=== PATIENT | male | born 1945 | race Caucasian/White ===

== ENCOUNTER 2018-12-06 09:43 | Inpatient (IN) ==
[2018-12-06] MEDS ORDERED: FUROSEMIDE 100 MG/10 ML VIAL IV STA (10:12)
[2018-12-06] MEDS ORDERED: ASPIRIN 325 MG TABLET PO STA (10:12)
[2018-12-06] MEDS ORDERED: FUROSEMIDE 40 MG/4 ML VIAL ONE (10:49)
[2018-12-06 11:05] LABS: Basophils % 0.8 % (0.0-0.8); Eosinophils # 0.1 10*3/uL (0.0-0.87); Eosinophils % 2.2 % (0.00-10.9); Hematocrit 45.1 VOL% (42.0-52.0); Hemoglobin 14.9 GM/DL (14.0-18.0); Immature Granulocytes % 0.6 %; Immature Granulocytes Absolute 0.03 #; Lymphocytes # 1.1 10*3/uL (1.4-4.0); Lymphocytes % 21.7 % (21.2-54.2); Mean Corpuscular Hemoglobin 32 PG (27-34); Mean Platelet Volume 10.9 FL (9.6-12.0); Monocytes # 0.5 10*3/uL (0.11-0.8); Monocytes % 9.5 % (1.7-12.7); Neutrophils # 3.2 10*3/uL (1.4-7.4); Neutrophils % 65.2 % (38.7-73.9); Platelet Count 102 T/CUMM (130-400); Red Cell Distribution Width 14.2 % (9.3-17.3)
[2018-12-06 11:08] LABS: INR 1.4; PT Patient Result 14.9 SECS; Partial Thromboplastin Time 30.8 SECS (0-40)
[2018-12-06 11:16] LABS: Albumin 3.5 G/DL (3.4-5.0); Bilirubin,Total 0.7 MG/DL (0.2-1.0); Calcium 9.2 MG/DL (8.5-10.1); Osmolality,Calculated 285.4 MOS/KG (273-304); Total Protein 6.5 G/DL (6.4-8.3)
[2018-12-06 11:44] LABS: Apearance,Urine Slightly Hazy (Clear); Bilirubin,Urine Negative (Negative); Blood, Urine Negative (Negative); Glucose,Urine (UA) Negative (Negative); Hyaline Casts,Urine 3 /LPF (0-3); Ketones,Urine Negative (Negative); Mucus,Urine Occasional /LPF (Occasional); Nitrite,Urine Negative (Negative); Protein,Urine Negative; RBC,Urine 1 /HPF (0-4); Urine Color Yellow (Yellow); Urine Specific Gravity 1.008 (1.001-1.035); Urine Urobilinogen < 2.0 EU/DL (0.2-1.0); WBC,Urine <1 /HPF (0-6)
[2018-12-06] MEDS ORDERED: PROMETHAZINE 25 MG/1 ML VIAL IM PRN (11:54)
[2018-12-06] MEDS ORDERED: ONDANSETRON 4 MG/2 ML VIAL IV PRN (11:54)
[2018-12-06] MEDS ORDERED: POTASSIUM CHLORIDE 20 MEQ TABLET PO PRN (11:57)
[2018-12-06] MEDS ORDERED: POTASSIUM CHLORIDE RIDER 10 MEQ in PREMIX 1 EACH IV PRN (11:57)
[2018-12-06] MEDS ORDERED: MAGNESIUM SULF RIDER 4 GM in PREMIX 1 EACH IV PRN (11:57)
[2018-12-06] MEDS ORDERED: MAGNESIUM SULF RIDER 2 GM in PREMIX 1 EACH IV PRN (11:57)
[2018-12-06] MEDS: PANTOPRAZOLE 40 MG TABLET PO SCH (12:44)
[2018-12-06] MEDS ORDERED: ALBUTEROL 2.5 MG/3 ML NEB RESP TX PRN (14:54)
[2018-12-06] MEDS: rOPINIRole 1 MG TABLET PO SCH ×2 (16:08→20:32)
[2018-12-06] MEDS: DIGOXIN 0.125 MG TABLET PO SCH (16:09)
[2018-12-06] MEDS: GABAPENTIN 100 MG CAPSULE PO SCH ×2 (16:10→20:34)
[2018-12-06] MEDS: CARVEDILOL 25 MG TABLET PO SCH (16:10)
[2018-12-06] MEDS: ACETAMINOPHEN 325 MG TABLET PO PRN ×2 (16:10→20:36)
[2018-12-06] MEDS: FUROSEMIDE 40 MG/4 ML VIAL IV SCH (16:12)
[2018-12-06] MEDS: APIXABAN 5 MG TABLET PO SCH (20:32)
[2018-12-06] MEDS: MAGNESIUM OXIDE 400 MG TABLET PO SCH (20:32)
[2018-12-06] MEDS: SACUBITRIL/VALSARTAN 49-51 MG TABLET PO SCH (20:33)
[2018-12-06] MEDS: DONEPEZIL 5 MG TABLET PO SCH (20:33)
[2018-12-06] MEDS: ROSUVASTATIN 20 MG TABLET PO SCH (20:34)
[2018-12-06] MEDS ORDERED: Icosapent Ethyl [Vascepa] 2 GM PO SCH (21:00)
[2018-12-07 05:27] LABS: Basophils % 0.9 % (0.0-0.8); Eosinophils # 0.1 10*3/uL (0.0-0.87); Eosinophils % 2.9 % (0.00-10.9); Hematocrit 44.2 VOL% (42.0-52.0); Hemoglobin 14.5 GM/DL (14.0-18.0); Immature Granulocytes % 0.2 %; Immature Granulocytes Absolute 0.01 #; Lymphocytes # 1.1 10*3/uL (1.4-4.0); Lymphocytes % 24.6 % (21.2-54.2); Mean Corpuscular HGB Conc 32.8 GM/DL (32-36); Mean Corpuscular Hemoglobin 32 PG (27-34); Mean Corpuscular Volume 96.3 FL (87-102); Mean Platelet Volume 12.1 FL (9.6-12.0); Monocytes # 0.5 10*3/uL (0.11-0.8); Monocytes % 11.9 % (1.7-12.7); Neutrophils # 2.7 10*3/uL (1.4-7.4); Neutrophils % 59.5 % (38.7-73.9); Platelet Count 106 T/CUMM (130-400); Red Blood Count 4.59 MC/CUMM (3.8-5.5); Red Cell Distribution Width 14.3 % (9.3-17.3); White Blood Count 4.6 T/CUMM (4-12)
[2018-12-07 05:41] LABS: Calcium 9.2 MG/DL (8.5-10.1); Osmolality,Calculated 285.7 MOS/KG (273-304); Potassium 4.3 MMOL/L (3.5-5.1); Risk Ratio 4.67; VLDL CHOLESTEROL 36.4 MG/DL
[2018-12-07] MEDS ORDERED: metOLazone 2.5 MG TABLET PO SCH (07:30)
[2018-12-07] MEDS ORDERED: ERGOCALCIFEROL 50,000 UNIT CAPSULE PO SCH (09:00)
[2018-12-07] MEDS ORDERED: FUROSEMIDE 40 MG/4 ML VIAL IV ONE (09:22)
[2018-12-07] MEDS ORDERED: metOLazone 2.5 MG TABLET PO ONE (10:42)
[2018-12-07] MEDS: MONTELUKAST 10 MG TABLET PO SCH (11:04)
[2018-12-07] MEDS: rOPINIRole 1 MG TABLET PO SCH ×3 (11:05→20:16)
[2018-12-07] MEDS: APIXABAN 5 MG TABLET PO SCH ×2 (11:05→20:16)
[2018-12-07] MEDS: PANTOPRAZOLE 40 MG TABLET PO SCH (11:05)
[2018-12-07] MEDS: GABAPENTIN 100 MG CAPSULE PO SCH ×3 (11:06→20:16)
[2018-12-07] MEDS: MULTIVITAMIN (CENTRUM) TABLET PO SCH (11:06)
[2018-12-07] MEDS: SACUBITRIL/VALSARTAN 49-51 MG TABLET PO SCH ×2 (11:06→20:16)
[2018-12-07] MEDS: MAGNESIUM OXIDE 400 MG TABLET PO SCH ×2 (11:06→20:16)
[2018-12-07] MEDS: ASCORBIC ACID 500 MG TABLET PO SCH (11:06)
[2018-12-07] MEDS: MULTIVITAMIN (BEROCCA) TABLET PO SCH (11:07)
[2018-12-07] MEDS: FUROSEMIDE 40 MG/4 ML VIAL IV SCH ×2 (11:07→17:35)
[2018-12-07] MEDS: FENOFIBRATE 160 MG TABLET PO SCH (11:07)
[2018-12-07] MEDS: CARVEDILOL 25 MG TABLET PO SCH ×2 (11:33→17:36)
[2018-12-07] MEDS ORDERED: GLUCAGON 1 MG VIAL IM PRN (16:59)
[2018-12-07] MEDS ORDERED: DEXTROSE 50% 25 GM/50 ML SYRINGE IV PRN (16:59)
[2018-12-07] MEDS ORDERED: FUROSEMIDE 20 MG/2 ML VIAL ONE (17:09)
[2018-12-07] MEDS: sitaGLIPtin 25 MG TABLET PO SCH (17:34)
[2018-12-07] MEDS: INSULIN GLARGINE 100 UNIT/ML SUBCUT SCH (17:34)
[2018-12-07] MEDS: DIGOXIN 0.125 MG TABLET PO SCH (17:35)
[2018-12-07] MEDS: ROSUVASTATIN 20 MG TABLET PO SCH (20:16)
[2018-12-07] MEDS: DONEPEZIL 5 MG TABLET PO SCH (20:17)
[2018-12-07] MEDS: INSULIN REGULAR 100 UNIT/ML SUBCUT SCH (23:49)
[2018-12-08 05:18] LABS: Basophils # 0.1 10*3/uL (0.0-0.2); Basophils % 0.9 % (0.0-0.8); Eosinophils # 0.2 10*3/uL (0.0-0.87); Eosinophils % 3.3 % (0.00-10.9); Hematocrit 47.3 VOL% (42.0-52.0); Hemoglobin 15.2 GM/DL (14.0-18.0); Immature Granulocytes % 0.5 %; Immature Granulocytes Absolute 0.03 #; Lymphocytes # 1.1 10*3/uL (1.4-4.0); Lymphocytes % 19.9 % (21.2-54.2); Mean Corpuscular HGB Conc 32.1 GM/DL (32-36); Mean Corpuscular Hemoglobin 31 PG (27-34); Mean Corpuscular Volume 95.4 FL (87-102); Mean Platelet Volume 11.5 FL (9.6-12.0); Monocytes # 0.6 10*3/uL (0.11-0.8); Monocytes % 10.1 % (1.7-12.7); Neutrophils # 3.6 10*3/uL (1.4-7.4); Neutrophils % 65.3 % (38.7-73.9); Platelet Count 118 T/CUMM (130-400); Red Blood Count 4.96 MC/CUMM (3.8-5.5); Red Cell Distribution Width 13.8 % (9.3-17.3); White Blood Count 5.5 T/CUMM (4-12)
[2018-12-08 05:39] LABS: Calcium 9.6 MG/DL (8.5-10.1); Osmolality,Calculated 284.5 MOS/KG (273-304); Potassium 3.9 MMOL/L (3.5-5.1)
[2018-12-08] MEDS: INSULIN REGULAR 100 UNIT/ML SUBCUT SCH ×3 (05:49→17:10)
[2018-12-08] MEDS: APIXABAN 5 MG TABLET PO SCH ×2 (10:04→20:25)
[2018-12-08] MEDS: MULTIVITAMIN (BEROCCA) TABLET PO SCH (10:04)
[2018-12-08] MEDS: sitaGLIPtin 25 MG TABLET PO SCH (10:05)
[2018-12-08] MEDS: metOLazone 2.5 MG TABLET PO SCH (10:05)
[2018-12-08] MEDS: ASCORBIC ACID 500 MG TABLET PO SCH (10:05)
[2018-12-08] MEDS: SACUBITRIL/VALSARTAN 49-51 MG TABLET PO SCH ×2 (10:05→20:24)
[2018-12-08] MEDS: PANTOPRAZOLE 40 MG TABLET PO SCH (10:06)
[2018-12-08] MEDS: CARVEDILOL 25 MG TABLET PO SCH ×2 (10:06→16:18)
[2018-12-08] MEDS: GABAPENTIN 100 MG CAPSULE PO SCH ×3 (10:06→20:24)
[2018-12-08] MEDS: FENOFIBRATE 160 MG TABLET PO SCH (10:06)
[2018-12-08] MEDS: MULTIVITAMIN (CENTRUM) TABLET PO SCH (10:06)
[2018-12-08] MEDS: MONTELUKAST 10 MG TABLET PO SCH (10:06)
[2018-12-08] MEDS: MAGNESIUM OXIDE 400 MG TABLET PO SCH ×2 (10:06→20:24)
[2018-12-08] MEDS: INSULIN GLARGINE 100 UNIT/ML SUBCUT SCH (10:07)
[2018-12-08] MEDS: FUROSEMIDE 40 MG/4 ML VIAL IV SCH ×2 (10:07→16:19)
[2018-12-08] MEDS ORDERED: INSULIN GLARGINE 100 UNIT/ML SUBCUT SCH (10:42)
[2018-12-08] MEDS: ACETAMINOPHEN 325 MG TABLET PO PRN (13:00)
[2018-12-08] MEDS: rOPINIRole 1 MG TABLET PO SCH ×3 (13:00→20:24)
[2018-12-08] MEDS ORDERED: SPIRONOLACTONE 25 MG TABLET PO SCH (15:00)
[2018-12-08] MEDS: INSULIN LISPRO 100 UNIT/ML SUBCUT SCH ×2 (16:13→17:10)
[2018-12-08] MEDS: DIGOXIN 0.125 MG TABLET PO SCH (16:16)
[2018-12-08] MEDS: DONEPEZIL 5 MG TABLET PO SCH (20:24)
[2018-12-08] MEDS: ROSUVASTATIN 20 MG TABLET PO SCH (20:24)
[2018-12-09] MEDS: INSULIN REGULAR 100 UNIT/ML SUBCUT SCH ×4 (02:13→19:14)
[2018-12-09 05:05] LABS: Calcium 9.4 MG/DL (8.5-10.1); Osmolality,Calculated 287.4 MOS/KG (273-304); Potassium 3.8 MMOL/L (3.5-5.1)
[2018-12-09] MEDS: FUROSEMIDE 40 MG/4 ML VIAL IV SCH ×2 (09:41→17:01)
[2018-12-09] MEDS: INSULIN GLARGINE 100 UNIT/ML SUBCUT SCH (09:42)
[2018-12-09] MEDS: SACUBITRIL/VALSARTAN 49-51 MG TABLET PO SCH ×2 (09:42→22:27)
[2018-12-09] MEDS: INSULIN LISPRO 100 UNIT/ML SUBCUT SCH ×3 (09:42→17:01)
[2018-12-09] MEDS: PANTOPRAZOLE 40 MG TABLET PO SCH (09:42)
[2018-12-09] MEDS: MONTELUKAST 10 MG TABLET PO SCH (09:43)
[2018-12-09] MEDS: sitaGLIPtin 25 MG TABLET PO SCH (09:43)
[2018-12-09] MEDS: MULTIVITAMIN (CENTRUM) TABLET PO SCH (09:43)
[2018-12-09] MEDS: MULTIVITAMIN (BEROCCA) TABLET PO SCH (09:43)
[2018-12-09] MEDS: metOLazone 2.5 MG TABLET PO SCH (09:43)
[2018-12-09] MEDS: rOPINIRole 1 MG TABLET PO SCH ×3 (09:43→21:32)
[2018-12-09] MEDS: APIXABAN 5 MG TABLET PO SCH ×2 (09:43→21:33)
[2018-12-09] MEDS: CARVEDILOL 25 MG TABLET PO SCH ×2 (09:43→17:01)
[2018-12-09] MEDS: GABAPENTIN 100 MG CAPSULE PO SCH ×3 (09:43→21:32)
[2018-12-09] MEDS: ASCORBIC ACID 500 MG TABLET PO SCH (09:44)
[2018-12-09] MEDS: MAGNESIUM OXIDE 400 MG TABLET PO SCH ×2 (09:44→21:32)
[2018-12-09] MEDS: FENOFIBRATE 160 MG TABLET PO SCH (09:44)
[2018-12-09] MEDS: DIGOXIN 0.125 MG TABLET PO SCH (13:24)
[2018-12-09] MEDS: SPIRONOLACTONE 25 MG TABLET PO SCH (13:25)
[2018-12-09] MEDS: ROSUVASTATIN 20 MG TABLET PO SCH (21:32)
[2018-12-09] MEDS: DONEPEZIL 5 MG TABLET PO SCH (21:33)
[2018-12-10] MEDS: INSULIN REGULAR 100 UNIT/ML SUBCUT SCH ×2 (01:24→07:40)
[2018-12-10] MEDS: ACETAMINOPHEN 325 MG TABLET PO PRN ×2 (04:00→09:53)
[2018-12-10 06:03] LABS: Basophils % 0.8 % (0.0-0.8); Eosinophils # 0.2 10*3/uL (0.0-0.87); Eosinophils % 3.8 % (0.00-10.9); Hematocrit 47.4 VOL% (42.0-52.0); Hemoglobin 15.5 GM/DL (14.0-18.0); Immature Granulocytes % 0.6 %; Immature Granulocytes Absolute 0.03 #; Lymphocytes # 1.3 10*3/uL (1.4-4.0); Lymphocytes % 24.3 % (21.2-54.2); Mean Corpuscular HGB Conc 32.7 GM/DL (32-36); Mean Corpuscular Hemoglobin 31 PG (27-34); Mean Corpuscular Volume 94.2 FL (87-102); Mean Platelet Volume 11.8 FL (9.6-12.0); Monocytes # 0.6 10*3/uL (0.11-0.8); Monocytes % 10.4 % (1.7-12.7); Neutrophils # 3.2 10*3/uL (1.4-7.4); Neutrophils % 60.1 % (38.7-73.9); Platelet Count 115 T/CUMM (130-400); Red Blood Count 5.03 MC/CUMM (3.8-5.5); Red Cell Distribution Width 13.7 % (9.3-17.3); White Blood Count 5.3 T/CUMM (4-12)
[2018-12-10 06:17] LABS: Calcium 9.9 MG/DL (8.5-10.1); Osmolality,Calculated 280.8 MOS/KG (273-304); Potassium 3.5 MMOL/L (3.5-5.1)
[2018-12-10 08:08] VITALS: BP 115/55
[2018-12-10] MEDS ORDERED: FUROSEMIDE 20 MG/2 ML VIAL ONE (09:43)
[2018-12-10] MEDS ORDERED: FUROSEMIDE 100 MG/10 ML VIAL ONE (09:44)
[2018-12-10] MEDS: CARVEDILOL 25 MG TABLET PO SCH (09:47)
[2018-12-10] MEDS: FUROSEMIDE 40 MG/4 ML VIAL IV SCH (09:47)
[2018-12-10] MEDS: MULTIVITAMIN (BEROCCA) TABLET PO SCH (09:47)
[2018-12-10] MEDS: ASCORBIC ACID 500 MG TABLET PO SCH (09:47)
[2018-12-10] MEDS: rOPINIRole 1 MG TABLET PO SCH (09:48)
[2018-12-10] MEDS: APIXABAN 5 MG TABLET PO SCH (09:48)
[2018-12-10] MEDS: PANTOPRAZOLE 40 MG TABLET PO SCH (09:48)
[2018-12-10] MEDS: metOLazone 2.5 MG TABLET PO SCH (09:48)
[2018-12-10] MEDS: SPIRONOLACTONE 25 MG TABLET PO SCH (09:48)
[2018-12-10] MEDS: SACUBITRIL/VALSARTAN 49-51 MG TABLET PO SCH (09:48)
[2018-12-10] MEDS: MULTIVITAMIN (CENTRUM) TABLET PO SCH (09:48)
[2018-12-10] MEDS: sitaGLIPtin 25 MG TABLET PO SCH (09:48)
[2018-12-10] MEDS: GABAPENTIN 100 MG CAPSULE PO SCH (09:48)
[2018-12-10] MEDS: MONTELUKAST 10 MG TABLET PO SCH (09:48)
[2018-12-10] MEDS: INSULIN GLARGINE 100 UNIT/ML SUBCUT SCH (09:49)
[2018-12-10] MEDS: INSULIN LISPRO 100 UNIT/ML SUBCUT SCH (09:49)
[2018-12-10] MEDS: MAGNESIUM OXIDE 400 MG TABLET PO SCH (09:56)
[2018-12-10] MEDS: FENOFIBRATE 160 MG TABLET PO SCH (09:56)
[2018-12-10] MEDS ORDERED: OMEGA 3 ACID ETHYL ESTERS 1 GM CAPSULE PO SCH (10:00)
[2018-12-10] MEDS ORDERED: FUROSEMIDE 40 MG TABLET PO SCH (16:00)
== END 2018-12-10 12:15 | disposition home or self-care (01) | DRG 291 ==
LOC: N.ED 09:43 → N.EDINP 11:54 → SUATTDRO 11:54 → N.4E 14:26
PROVIDERS: ADMIT Family Medicine; ATTEND Emergency Medicine

== ENCOUNTER 2019-03-30 05:33 | Inpatient (IN) ==
[2019-03-30 06:39] LABS: Basophils % 0.3 % (0.0-0.8); Eosinophils % 0.5 % (0.00-10.9); Hematocrit 44.2 VOL% (42.0-52.0); Hemoglobin 14.4 GM/DL (14.0-18.0); Immature Granulocytes % 0.5 %; Immature Granulocytes Absolute 0.04 #; Lymphocytes # 0.7 10*3/uL (1.4-4.0); Lymphocytes % 7.5 % (21.2-54.2); Mean Corpuscular HGB Conc 32.6 GM/DL (32-36); Mean Corpuscular Volume 96.7 FL (87-102); Monocytes % 7.2 % (1.7-12.7); Platelet Count 116 T/CUMM (130-400); Red Blood Count 4.57 MC/CUMM (3.8-5.5); Red Cell Distribution Width 15.5 % (9.3-17.3); White Blood Count 8.9 T/CUMM (4-12)
[2019-03-30 07:00] LABS: Albumin 3.6 G/DL (3.4-5.0); Bilirubin,Total 1.9 MG/DL (0.2-1.0); Calcium 9.6 MG/DL (8.5-10.1); Osmolality,Calculated 287.4 MOS/KG (273-304)
[2019-03-30 07:24] LABS: INR 1.2; PT Patient Result 13.4 SECS; Partial Thromboplastin Time 27.8 SECS (0-40)
[2019-03-30] MEDS ORDERED: VANCOMYCIN INJ 1,000 MG in SODIUM CHLORIDE 0.9% 250 ML IV STA (07:45)
[2019-03-30] MEDS: PANTOPRAZOLE 40 MG TABLET PO SCH (09:40)
[2019-03-30] MEDS ORDERED: cefTRIAXone 2,000 MG in SYRINGE 1 EACH IV SCH (14:00)
[2019-03-30] MEDS ORDERED: ALBUTEROL 2.5 MG/3 ML NEB RESP TX PRN (16:24)
[2019-03-30] MEDS: MORPHINE 4 MG/1 ML VIAL IV PRN ×2 (17:21→22:06)
[2019-03-30] MEDS ORDERED: DEXTROSE 50% 25 GM/50 ML VIAL IV PRN (17:55)
[2019-03-30] MEDS: INSULIN REGULAR 100 UNIT/ML SUBCUT SCH ×2 (18:22→20:55)
[2019-03-30] MEDS: rOPINIRole 1 MG TABLET PO SCH (20:28)
[2019-03-30] MEDS: SACUBITRIL/VALSARTAN 49-51 MG TABLET PO SCH (20:29)
[2019-03-30] MEDS: DONEPEZIL 5 MG TABLET PO SCH (20:29)
[2019-03-30] MEDS: GABAPENTIN 100 MG CAPSULE PO SCH (20:30)
[2019-03-30] MEDS: MAGNESIUM OXIDE 400 MG TABLET PO SCH (20:30)
[2019-03-30] MEDS: APIXABAN 5 MG TABLET PO SCH (20:30)
[2019-03-30] MEDS: ROSUVASTATIN 20 MG TABLET PO SCH (20:30)
[2019-03-30] MEDS: CARVEDILOL 25 MG TABLET PO SCH (20:37)
[2019-03-30] MEDS ORDERED: TORSEMIDE 20 MG TABLET PO SCH (21:00)
[2019-03-31 04:50] LABS: Basophils % 0.4 % (0.0-0.8); Eosinophils % 0.4 % (0.00-10.9); Hematocrit 40.6 VOL% (42.0-52.0); Hemoglobin 13.3 GM/DL (14.0-18.0); Immature Granulocytes % 0.5 %; Immature Granulocytes Absolute 0.04 #; Lymphocytes # 0.8 10*3/uL (1.4-4.0); Lymphocytes % 9.8 % (21.2-54.2); Mean Corpuscular HGB Conc 32.8 GM/DL (32-36); Mean Corpuscular Volume 97.6 FL (87-102); Mean Platelet Volume 12.2 FL (9.6-12.0); Monocytes % 10.7 % (1.7-12.7); Neutrophils % 78.2 % (38.7-73.9); Platelet Count 101 T/CUMM (130-400); Red Blood Count 4.16 MC/CUMM (3.8-5.5); Red Cell Distribution Width 15.7 % (9.3-17.3); White Blood Count 8.6 T/CUMM (4-12)
[2019-03-31 05:23] LABS: Calcium 8.6 MG/DL (8.5-10.1); Osmolality,Calculated 294.7 MOS/KG (273-304); Risk Ratio 3.6; Thyroid Stimulating Hormone 0.089 uIU/ml (0.358-3.74); VLDL CHOLESTEROL 21.8 MG/DL
[2019-03-31] MEDS: CARVEDILOL 25 MG TABLET PO SCH ×3 (08:50→22:03)
[2019-03-31] MEDS: ASCORBIC ACID 500 MG TABLET PO SCH (08:53)
[2019-03-31] MEDS: GABAPENTIN 100 MG CAPSULE PO SCH ×3 (08:53→20:37)
[2019-03-31] MEDS: SACUBITRIL/VALSARTAN 49-51 MG TABLET PO SCH ×2 (08:53→20:37)
[2019-03-31] MEDS: MAGNESIUM OXIDE 400 MG TABLET PO SCH ×2 (08:53→20:37)
[2019-03-31] MEDS: APIXABAN 5 MG TABLET PO SCH ×2 (08:53→20:35)
[2019-03-31] MEDS: MULTIVITAMIN (BEROCCA) TABLET PO SCH (08:53)
[2019-03-31] MEDS: PANTOPRAZOLE 40 MG TABLET PO SCH (08:53)
[2019-03-31] MEDS: MULTIVITAMIN (CENTRUM) TABLET PO SCH (08:54)
[2019-03-31] MEDS: MONTELUKAST 10 MG TABLET PO SCH (08:54)
[2019-03-31] MEDS: FENOFIBRATE 160 MG TABLET PO SCH (08:54)
[2019-03-31] MEDS: rOPINIRole 1 MG TABLET PO SCH ×3 (08:54→20:37)
[2019-03-31] MEDS: INSULIN REGULAR ** CONC 500 UNIT/ML ** 20 ML VIAL SUBCUT SCH ×3 (08:55→16:56)
[2019-03-31] MEDS: SODIUM CHLORIDE 0.9% 1,000 ML IV SCH (08:55)
[2019-03-31] MEDS: INSULIN REGULAR 100 UNIT/ML SUBCUT SCH ×4 (09:25→21:52)
[2019-03-31] MEDS ORDERED: PHENOL 1.4% THROAT SPRAY 177 ML BOTTLE PO PRN (10:15)
[2019-03-31] MEDS ORDERED: INSULIN REGULAR 100 UNIT/ML SUBCUT SCH (11:30)
[2019-03-31] MEDS: PIPERACILLIN/TAZOBACTAM 3,375 MG in SODIUM CHLORIDE 0.9% 100 ML IV SCH (14:27)
[2019-03-31] MEDS: DIGOXIN 0.125 MG TABLET PO SCH (14:28)
[2019-03-31] MEDS: ROSUVASTATIN 20 MG TABLET PO SCH (20:36)
[2019-03-31] MEDS: DONEPEZIL 5 MG TABLET PO SCH (20:37)
[2019-03-31] MEDS: FLUTICASONE 50 MCG NASAL SPRAY 16 GM BOTTLE BOTH NARES SCH (22:02)
[2019-04-01] MEDS ORDERED: DEXTROSE 10% 250 ML IV ONE (01:00)
[2019-04-01] MEDS ORDERED: DEXTROSE 10% 250 ML BAG IV ONE (01:05)
[2019-04-01] MEDS: PIPERACILLIN/TAZOBACTAM 3,375 MG in SODIUM CHLORIDE 0.9% 100 ML IV SCH ×2 (01:24→14:49)
[2019-04-01] MEDS: oxyCODONE/ACETAMINOPHEN 5-325 MG TABLET PO PRN ×2 (02:07→11:36)
[2019-04-01 06:05] LABS: Basophils % 0.3 % (0.0-0.8); Eosinophils # 0.1 10*3/uL (0.0-0.87); Eosinophils % 0.9 % (0.00-10.9); Hematocrit 37.4 VOL% (42.0-52.0); Hemoglobin 12.1 GM/DL (14.0-18.0); Immature Granulocytes % 0.5 %; Immature Granulocytes Absolute 0.04 #; Lymphocytes # 0.7 10*3/uL (1.4-4.0); Lymphocytes % 9.1 % (21.2-54.2); Mean Corpuscular HGB Conc 32.4 GM/DL (32-36); Mean Corpuscular Volume 96.9 FL (87-102); Mean Platelet Volume 12.1 FL (9.6-12.0); Monocytes % 9.7 % (1.7-12.7); Neutrophils % 79.5 % (38.7-73.9); Red Blood Count 3.86 MC/CUMM (3.8-5.5); Red Cell Distribution Width 15.5 % (9.3-17.3); White Blood Count 7.7 T/CUMM (4-12)
[2019-04-01 06:20] LABS: Platelet Count 89 T/CUMM (130-400)
[2019-04-01 06:35] LABS: Anisocytosis 1+; Platelet Estimate Decreased
[2019-04-01 06:37] LABS: Calcium 8.5 MG/DL (8.5-10.1); Osmolality,Calculated 289.5 MOS/KG (273-304)
[2019-04-01] MEDS: MAGNESIUM OXIDE 400 MG TABLET PO SCH ×2 (10:02→20:10)
[2019-04-01] MEDS: MULTIVITAMIN (CENTRUM) TABLET PO SCH (10:02)
[2019-04-01] MEDS: SACUBITRIL/VALSARTAN 49-51 MG TABLET PO SCH (10:02)
[2019-04-01] MEDS: MULTIVITAMIN (BEROCCA) TABLET PO SCH (10:02)
[2019-04-01] MEDS: rOPINIRole 1 MG TABLET PO SCH ×3 (10:03→20:10)
[2019-04-01] MEDS: PANTOPRAZOLE 40 MG TABLET PO SCH (10:03)
[2019-04-01] MEDS: FENOFIBRATE 160 MG TABLET PO SCH (10:03)
[2019-04-01] MEDS: ASCORBIC ACID 500 MG TABLET PO SCH (10:03)
[2019-04-01] MEDS: FLUTICASONE 50 MCG NASAL SPRAY 16 GM BOTTLE BOTH NARES SCH ×2 (10:03→20:11)
[2019-04-01] MEDS: MONTELUKAST 10 MG TABLET PO SCH (10:03)
[2019-04-01] MEDS: GABAPENTIN 100 MG CAPSULE PO SCH ×3 (10:03→20:10)
[2019-04-01] MEDS: APIXABAN 5 MG TABLET PO SCH ×2 (10:04→20:10)
[2019-04-01] MEDS: INSULIN REGULAR ** CONC 500 UNIT/ML ** 20 ML VIAL SUBCUT SCH ×3 (10:35→18:04)
[2019-04-01] MEDS: INSULIN REGULAR 100 UNIT/ML SUBCUT SCH ×4 (10:35→22:07)
[2019-04-01] MEDS: CARVEDILOL 25 MG TABLET PO SCH ×2 (10:35→22:06)
[2019-04-01] MEDS: SODIUM CHLORIDE 0.9% 1,000 ML IV SCH (11:36)
[2019-04-01] MEDS: ONDANSETRON 4 MG/2 ML VIAL IV PRN (14:48)
[2019-04-01] MEDS: DIGOXIN 0.125 MG TABLET PO SCH (14:48)
[2019-04-01] MEDS: ROSUVASTATIN 20 MG TABLET PO SCH (20:10)
[2019-04-01] MEDS: DONEPEZIL 5 MG TABLET PO SCH (20:10)
[2019-04-02] MEDS: PIPERACILLIN/TAZOBACTAM 3,375 MG in SODIUM CHLORIDE 0.9% 100 ML IV SCH (02:44)
[2019-04-02 06:48] LABS: Basophils % 0.6 % (0.0-0.8); Eosinophils # 0.1 10*3/uL (0.0-0.87); Eosinophils % 1.9 % (0.00-10.9); Hematocrit 39.3 VOL% (42.0-52.0); Hemoglobin 12.9 GM/DL (14.0-18.0); Immature Granulocytes % 0.5 %; Immature Granulocytes Absolute 0.03 #; Lymphocytes # 0.8 10*3/uL (1.4-4.0); Lymphocytes % 12.7 % (21.2-54.2); Mean Corpuscular HGB Conc 32.8 GM/DL (32-36); Mean Corpuscular Volume 97.5 FL (87-102); Mean Platelet Volume 12.3 FL (9.6-12.0); Monocytes % 11.1 % (1.7-12.7); Neutrophils % 73.2 % (38.7-73.9); Platelet Count 100 T/CUMM (130-400); Red Blood Count 4.03 MC/CUMM (3.8-5.5); Red Cell Distribution Width 15.1 % (9.3-17.3); White Blood Count 6.5 T/CUMM (4-12)
[2019-04-02 07:18] LABS: Calcium 8.6 MG/DL (8.5-10.1); Osmolality,Calculated 296.9 MOS/KG (273-304)
[2019-04-02] MEDS: INSULIN REGULAR 100 UNIT/ML SUBCUT SCH ×4 (08:05→22:39)
[2019-04-02] MEDS: FLUTICASONE 50 MCG NASAL SPRAY 16 GM BOTTLE BOTH NARES SCH ×2 (08:05→22:36)
[2019-04-02] MEDS: ONDANSETRON 4 MG/2 ML VIAL IV PRN (08:06)
[2019-04-02] MEDS: ASCORBIC ACID 500 MG TABLET PO SCH (08:07)
[2019-04-02] MEDS: oxyCODONE/ACETAMINOPHEN 5-325 MG TABLET PO PRN (08:07)
[2019-04-02] MEDS: APIXABAN 5 MG TABLET PO SCH (08:07)
[2019-04-02] MEDS: MULTIVITAMIN (CENTRUM) TABLET PO SCH (08:07)
[2019-04-02] MEDS: MONTELUKAST 10 MG TABLET PO SCH (08:07)
[2019-04-02] MEDS: rOPINIRole 1 MG TABLET PO SCH ×2 (08:08→15:27)
[2019-04-02] MEDS: MAGNESIUM OXIDE 400 MG TABLET PO SCH ×2 (08:08→22:38)
[2019-04-02] MEDS: MULTIVITAMIN (BEROCCA) TABLET PO SCH (08:08)
[2019-04-02] MEDS: GABAPENTIN 100 MG CAPSULE PO SCH ×3 (08:08→22:38)
[2019-04-02] MEDS: PANTOPRAZOLE 40 MG TABLET PO SCH (08:09)
[2019-04-02] MEDS: CARVEDILOL 25 MG TABLET PO SCH ×2 (08:09→22:37)
[2019-04-02] MEDS: FENOFIBRATE 160 MG TABLET PO SCH (08:10)
[2019-04-02] MEDS: INSULIN REGULAR ** CONC 500 UNIT/ML ** 20 ML VIAL SUBCUT SCH ×4 (10:10→18:41)
[2019-04-02] MEDS: FUROSEMIDE 40 MG/4 ML VIAL IV SCH (13:56)
[2019-04-02] MEDS: DIGOXIN 0.125 MG TABLET PO SCH (13:56)
[2019-04-02] MEDS: cefTRIAXone 1,000 MG in SYRINGE 1 EACH IV SCH (13:56)
[2019-04-02] MEDS: SODIUM CHLORIDE 0.9% 1,000 ML IV SCH (14:02)
[2019-04-02] MEDS: ROSUVASTATIN 20 MG TABLET PO SCH (22:36)
[2019-04-02] MEDS: DONEPEZIL 5 MG TABLET PO SCH (22:37)
[2019-04-02] MEDS: APIXABAN 2.5 MG TABLET PO SCH (22:38)
[2019-04-03] MEDS: GLUCAGON 1 MG VIAL IM PRN (02:41)
[2019-04-03 03:01] LABS: Basophils # 0.1 10*3/uL (0.0-0.2); Basophils % 0.9 % (0.0-0.8); Eosinophils # 0.3 10*3/uL (0.0-0.87); Eosinophils % 3.9 % (0.00-10.9); Hematocrit 42.7 VOL% (42.0-52.0); Hemoglobin 13.8 GM/DL (14.0-18.0); Immature Granulocytes % 0.4 %; Immature Granulocytes Absolute 0.03 #; Lymphocytes # 1.3 10*3/uL (1.4-4.0); Lymphocytes % 16.7 % (21.2-54.2); Mean Corpuscular HGB Conc 32.3 GM/DL (32-36); Mean Platelet Volume 11.7 FL (9.6-12.0); Monocytes % 11.1 % (1.7-12.7); Platelet Count 132 T/CUMM (130-400); Red Cell Distribution Width 14.9 % (9.3-17.3)
[2019-04-03 03:42] LABS: Calcium 8.7 MG/DL (8.5-10.1); Osmolality,Calculated 295.4 MOS/KG (273-304)
[2019-04-03] MEDS: INSULIN REGULAR 100 UNIT/ML SUBCUT SCH ×4 (07:29→21:24)
[2019-04-03] MEDS: MULTIVITAMIN (BEROCCA) TABLET PO SCH (09:25)
[2019-04-03] MEDS: FUROSEMIDE 40 MG/4 ML VIAL IV SCH (09:25)
[2019-04-03] MEDS: INSULIN REGULAR ** CONC 500 UNIT/ML ** 20 ML VIAL SUBCUT SCH ×4 (09:25→16:56)
[2019-04-03] MEDS: MONTELUKAST 10 MG TABLET PO SCH (09:26)
[2019-04-03] MEDS: GABAPENTIN 100 MG CAPSULE PO SCH ×3 (09:26→22:00)
[2019-04-03] MEDS: MULTIVITAMIN (CENTRUM) TABLET PO SCH (09:26)
[2019-04-03] MEDS: CARVEDILOL 25 MG TABLET PO SCH ×2 (09:26→22:00)
[2019-04-03] MEDS: ASCORBIC ACID 500 MG TABLET PO SCH (09:26)
[2019-04-03] MEDS: PANTOPRAZOLE 40 MG TABLET PO SCH (09:26)
[2019-04-03] MEDS: APIXABAN 2.5 MG TABLET PO SCH ×2 (09:26→22:00)
[2019-04-03] MEDS: FENOFIBRATE 160 MG TABLET PO SCH (09:27)
[2019-04-03] MEDS: MAGNESIUM OXIDE 400 MG TABLET PO SCH ×2 (09:27→22:00)
[2019-04-03] MEDS: FLUTICASONE 50 MCG NASAL SPRAY 16 GM BOTTLE BOTH NARES SCH ×2 (09:27→23:18)
[2019-04-03] MEDS: SODIUM CHLORIDE 0.9% 1,000 ML IV SCH (09:39)
[2019-04-03] MEDS ORDERED: metOLazone 5 MG TABLET PO ONE (11:00)
[2019-04-03] MEDS: DIGOXIN 0.125 MG TABLET PO SCH (12:47)
[2019-04-03] MEDS: cefTRIAXone 1,000 MG in SYRINGE 1 EACH IV SCH (12:48)
[2019-04-03] MEDS: ROSUVASTATIN 20 MG TABLET PO SCH (21:59)
[2019-04-03] MEDS: DONEPEZIL 5 MG TABLET PO SCH (21:59)
[2019-04-04 05:10] LABS: Basophils % 0.6 % (0.0-0.8); Eosinophils # 0.2 10*3/uL (0.0-0.87); Hematocrit 40.4 VOL% (42.0-52.0); Hemoglobin 13.4 GM/DL (14.0-18.0); Immature Granulocytes % 0.7 %; Immature Granulocytes Absolute 0.04 #; Lymphocytes # 0.9 10*3/uL (1.4-4.0); Lymphocytes % 16.1 % (21.2-54.2); Mean Corpuscular HGB Conc 33.2 GM/DL (32-36); Mean Corpuscular Volume 95.7 FL (87-102); Mean Platelet Volume 11.7 FL (9.6-12.0); Neutrophils % 67.6 % (38.7-73.9); Platelet Count 129 T/CUMM (130-400); Red Blood Count 4.22 MC/CUMM (3.8-5.5); Red Cell Distribution Width 14.8 % (9.3-17.3); White Blood Count 5.3 T/CUMM (4-12)
[2019-04-04 05:19] LABS: Calcium 9.2 MG/DL (8.5-10.1); Osmolality,Calculated 300.1 MOS/KG (273-304)
[2019-04-04] MEDS: GLUCAGON 1 MG VIAL IM PRN (06:02)
[2019-04-04] MEDS: INSULIN REGULAR ** CONC 500 UNIT/ML ** 20 ML VIAL SUBCUT SCH ×3 (07:33→17:14)
[2019-04-04] MEDS: INSULIN REGULAR 100 UNIT/ML SUBCUT SCH ×4 (07:33→21:27)
[2019-04-04] MEDS ORDERED: metOLazone 5 MG TABLET PO SCH (09:00)
[2019-04-04] MEDS: MONTELUKAST 10 MG TABLET PO SCH (10:15)
[2019-04-04] MEDS: PANTOPRAZOLE 40 MG TABLET PO SCH (10:15)
[2019-04-04] MEDS: MULTIVITAMIN (BEROCCA) TABLET PO SCH (10:15)
[2019-04-04] MEDS: CARVEDILOL 25 MG TABLET PO SCH ×2 (10:15→21:36)
[2019-04-04] MEDS: MULTIVITAMIN (CENTRUM) TABLET PO SCH (10:16)
[2019-04-04] MEDS: APIXABAN 2.5 MG TABLET PO SCH ×2 (10:16→21:36)
[2019-04-04] MEDS: FUROSEMIDE 40 MG/4 ML VIAL IV SCH (10:16)
[2019-04-04] MEDS: GABAPENTIN 100 MG CAPSULE PO SCH ×3 (10:16→21:35)
[2019-04-04] MEDS: ASCORBIC ACID 500 MG TABLET PO SCH (10:16)
[2019-04-04] MEDS: MAGNESIUM OXIDE 400 MG TABLET PO SCH ×2 (10:16→21:35)
[2019-04-04] MEDS: FENOFIBRATE 160 MG TABLET PO SCH (10:17)
[2019-04-04] MEDS: FLUTICASONE 50 MCG NASAL SPRAY 16 GM BOTTLE BOTH NARES SCH ×2 (10:18→21:50)
[2019-04-04] MEDS: oxyCODONE/ACETAMINOPHEN 5-325 MG TABLET PO PRN (10:21)
[2019-04-04] MEDS: cefTRIAXone 1,000 MG in SYRINGE 1 EACH IV SCH (11:56)
[2019-04-04] MEDS ORDERED: metOLazone 5 MG TABLET PO ONE (12:54)
[2019-04-04] MEDS: DIGOXIN 0.125 MG TABLET PO SCH (14:18)
[2019-04-04] MEDS: DONEPEZIL 5 MG TABLET PO SCH (21:35)
[2019-04-04] MEDS: ROSUVASTATIN 20 MG TABLET PO SCH (21:35)
[2019-04-05 05:45] LABS: Basophils % 0.7 % (0.0-0.8); Eosinophils # 0.2 10*3/uL (0.0-0.87); Hemoglobin 12.6 GM/DL (14.0-18.0); Immature Granulocytes % 1.1 %; Immature Granulocytes Absolute 0.06 #; Lymphocytes # 0.8 10*3/uL (1.4-4.0); Lymphocytes % 15.2 % (21.2-54.2); Mean Corpuscular HGB Conc 32.3 GM/DL (32-36); Mean Platelet Volume 11.3 FL (9.6-12.0); Monocytes % 11.7 % (1.7-12.7); Neutrophils % 67.3 % (38.7-73.9); Platelet Count 137 T/CUMM (130-400); Red Blood Count 3.98 MC/CUMM (3.8-5.5); Red Cell Distribution Width 14.9 % (9.3-17.3); White Blood Count 5.5 T/CUMM (4-12)
[2019-04-05 06:01] LABS: Calcium 9.3 MG/DL (8.5-10.1)
[2019-04-05] MEDS: FLUTICASONE 50 MCG NASAL SPRAY 16 GM BOTTLE BOTH NARES SCH ×2 (08:49→20:56)
[2019-04-05] MEDS: FENOFIBRATE 160 MG TABLET PO SCH (08:50)
[2019-04-05] MEDS: MULTIVITAMIN (CENTRUM) TABLET PO SCH (08:50)
[2019-04-05] MEDS: MONTELUKAST 10 MG TABLET PO SCH (08:50)
[2019-04-05] MEDS: MULTIVITAMIN (BEROCCA) TABLET PO SCH (08:50)
[2019-04-05] MEDS: APIXABAN 5 MG TABLET PO SCH ×2 (08:50→20:55)
[2019-04-05] MEDS: CARVEDILOL 25 MG TABLET PO SCH ×2 (08:51→20:24)
[2019-04-05] MEDS: PANTOPRAZOLE 40 MG TABLET PO SCH (08:51)
[2019-04-05] MEDS: MAGNESIUM OXIDE 400 MG TABLET PO SCH ×2 (08:51→20:25)
[2019-04-05] MEDS: GABAPENTIN 100 MG CAPSULE PO SCH ×3 (08:51→20:25)
[2019-04-05] MEDS: cefTRIAXone 1,000 MG in SYRINGE 1 EACH IV SCH (08:51)
[2019-04-05] MEDS: ASCORBIC ACID 500 MG TABLET PO SCH (08:51)
[2019-04-05] MEDS: FUROSEMIDE 40 MG/4 ML VIAL IV SCH (08:52)
[2019-04-05] MEDS: INSULIN REGULAR ** CONC 500 UNIT/ML ** 20 ML VIAL SUBCUT SCH ×3 (08:52→18:41)
[2019-04-05] MEDS: INSULIN REGULAR 100 UNIT/ML SUBCUT SCH ×4 (08:55→21:45)
[2019-04-05] MEDS ORDERED: metOLazone 5 MG TABLET PO SCH (09:00)
[2019-04-05] MEDS ORDERED: ERGOCALCIFEROL 50,000 UNIT CAPSULE PO SCH (09:00)
[2019-04-05] MEDS: DIGOXIN 0.125 MG TABLET PO SCH (12:37)
[2019-04-05] MEDS: FUROSEMIDE 40 MG TABLET PO SCH (15:21)
[2019-04-05] MEDS: DONEPEZIL 5 MG TABLET PO SCH (20:24)
[2019-04-05] MEDS: ROSUVASTATIN 20 MG TABLET PO SCH (20:54)
[2019-04-05] MEDS ORDERED: APIXABAN 2.5 MG TABLET PO SCH (21:00)
[2019-04-06 05:09] LABS: Basophils # 0.1 10*3/uL (0.0-0.2); Basophils % 0.8 % (0.0-0.8); Eosinophils # 0.2 10*3/uL (0.0-0.87); Eosinophils % 2.9 % (0.00-10.9); Hematocrit 40.7 VOL% (42.0-52.0); Hemoglobin 13.1 GM/DL (14.0-18.0); Immature Granulocytes % 1.5 %; Lymphocytes # 0.9 10*3/uL (1.4-4.0); Mean Corpuscular HGB Conc 32.2 GM/DL (32-36); Mean Corpuscular Volume 97.6 FL (87-102); Mean Platelet Volume 11.1 FL (9.6-12.0); Monocytes % 9.3 % (1.7-12.7); Neutrophils % 71.5 % (38.7-73.9); Platelet Count 162 T/CUMM (130-400); Red Blood Count 4.17 MC/CUMM (3.8-5.5); White Blood Count 6.6 T/CUMM (4-12)
[2019-04-06 07:24] VITALS: BP 120/68
[2019-04-06] MEDS: INSULIN REGULAR ** CONC 500 UNIT/ML ** 20 ML VIAL SUBCUT SCH (09:43)
[2019-04-06] MEDS: INSULIN REGULAR 100 UNIT/ML SUBCUT SCH (09:44)
[2019-04-06] MEDS: CARVEDILOL 25 MG TABLET PO SCH (09:44)
[2019-04-06] MEDS: GABAPENTIN 100 MG CAPSULE PO SCH (09:44)
[2019-04-06] MEDS: MONTELUKAST 10 MG TABLET PO SCH (09:44)
[2019-04-06] MEDS: FUROSEMIDE 40 MG TABLET PO SCH (09:45)
[2019-04-06] MEDS: APIXABAN 5 MG TABLET PO SCH (09:45)
[2019-04-06] MEDS: MULTIVITAMIN (BEROCCA) TABLET PO SCH (09:45)
[2019-04-06] MEDS: ASCORBIC ACID 500 MG TABLET PO SCH (09:45)
[2019-04-06] MEDS: MAGNESIUM OXIDE 400 MG TABLET PO SCH (09:45)
[2019-04-06] MEDS: MULTIVITAMIN (CENTRUM) TABLET PO SCH (09:45)
[2019-04-06] MEDS: PANTOPRAZOLE 40 MG TABLET PO SCH (09:46)
[2019-04-06] MEDS: cefTRIAXone 1,000 MG in SYRINGE 1 EACH IV SCH (09:46)
[2019-04-06] MEDS: FENOFIBRATE 160 MG TABLET PO SCH (09:46)
[2019-04-06] MEDS: FLUTICASONE 50 MCG NASAL SPRAY 16 GM BOTTLE BOTH NARES SCH (09:47)
== END 2019-04-06 11:00 | disposition home health service (06) | DRG 603 ==
LOC: N.ED 05:33 → N.EDINP 05:33 → N.2E 12:33 → SUATTDRO 03-31 14:21
PROVIDERS: ADMIT Internal Medicine; ATTEND Internal Medicine

== ENCOUNTER 2019-05-10 10:26 | Observation (INO) ==
[2019-05-10] MEDS ORDERED: SODIUM CHLORIDE 0.9% 500 ML IV STA (10:44)
[2019-05-10 11:02] LABS: Basophils # 0.1 10*3/uL (0.0-0.2); Basophils % 0.8 % (0.0-0.8); Eosinophils # 0.3 10*3/uL (0.0-0.87); Eosinophils % 3.4 % (0.00-10.9); Hematocrit 45.6 VOL% (42.0-52.0); Hemoglobin 15.8 GM/DL (14.0-18.0); Immature Granulocytes % 0.6 %; Immature Granulocytes Absolute 0.05 #; Lymphocytes # 1.6 10*3/uL (1.4-4.0); Lymphocytes % 20.4 % (21.2-54.2); Mean Corpuscular HGB Conc 34.6 GM/DL (32-36); Mean Corpuscular Volume 91.8 FL (87-102); Mean Platelet Volume 10.9 FL (9.6-12.0); Monocytes % 9.8 % (1.7-12.7); Platelet Count 144 T/CUMM (130-400); Red Blood Count 4.97 MC/CUMM (3.8-5.5); Red Cell Distribution Width 13.3 % (9.3-17.3)
[2019-05-10 11:09] LABS: INR 1.3; PT Patient Result 13.9 SECS
[2019-05-10 11:23] LABS: Albumin 3.6 G/DL (3.4-5.0); Bilirubin,Total 1.2 MG/DL (0.2-1.0); Calcium 9.9 MG/DL (8.5-10.1); Osmolality,Calculated 291.4 MOS/KG (273-304); Total Protein 6.9 G/DL (6.4-8.3)
[2019-05-10 12:09] LABS: Apearance,Urine CLOUDY (Clear); Bacteria,Urine Occasional /HPF (Few); Bilirubin,Urine Negative (Negative); Blood, Urine Negative (Negative); Glucose,Urine (UA) Negative (Negative); Hyaline Casts,Urine 3 /LPF (0-3); Ketones,Urine Negative (Negative); Nitrite,Urine Negative (Negative); Protein,Urine Negative; RBC,Urine 1 /HPF (0-4); Squamous Epithelial Cell,Urine Occasional /HPF (0-10); Urine Color Amber (Yellow); Urine Specific Gravity 1.009 (1.001-1.035); Urine Urobilinogen < 2.0 EU/DL (0.2-1.0); WBC,Urine 2 /HPF (0-6)
[2019-05-10] MEDS ORDERED: ZALEPLON 5 MG CAPSULE PO PRN (13:25)
[2019-05-10] MEDS ORDERED: MORPHINE 4 MG/1 ML VIAL IV PRN (13:25)
[2019-05-10] MEDS ORDERED: ONDANSETRON 4 MG/2 ML VIAL IV PRN (13:25)
[2019-05-10] MEDS ORDERED: DOCUSATE SODIUM 100 MG CAPSULE PO PRN (13:25)
[2019-05-10] MEDS ORDERED: diphenhydrAMINE CAP 25 MG CAPSULE PO PRN (13:25)
[2019-05-10] MEDS ORDERED: MAGNESIUM SULF RIDER 4 GM in PREMIX 1 EACH IV PRN (13:25)
[2019-05-10] MEDS ORDERED: MAGNESIUM SULF RIDER 2 GM in PREMIX 1 EACH IV PRN (13:25)
[2019-05-10] MEDS ORDERED: DEXTROSE 50% 25 GM/50 ML VIAL IV PRN (13:57)
[2019-05-10] MEDS ORDERED: GLUCAGON 1 MG VIAL IM PRN (13:57)
[2019-05-10 15:13] LABS: Troponin I 0.033 NG/ML (0.00-0.045)
[2019-05-10] MEDS: SODIUM CHLORIDE 0.45% 1,000 ML IV SCH (15:57)
[2019-05-10] MEDS: INSULIN REGULAR 100 UNIT/ML SUBCUT SCH ×2 (16:39→21:54)
[2019-05-10] MEDS: GABAPENTIN 100 MG CAPSULE PO SCH ×2 (16:39→21:41)
[2019-05-10 17:02] LABS: Troponin I 0.049 NG/ML (0.00-0.045)
[2019-05-10] MEDS: INSULIN REGULAR ** CONC 500 UNIT/ML ** 20 ML VIAL SUBCUT SCH (18:40)
[2019-05-10] MEDS ORDERED: ALBUTEROL 2.5 MG/3 ML NEB RESP TX PRN (19:00)
[2019-05-10 19:04] LABS: Apearance,Urine Clear (Clear); Bilirubin,Urine Negative (Negative); Glucose,Urine (UA) Negative (Negative); Ketones,Urine Negative (Negative); Nitrite,Urine Negative (Negative); Protein,Urine Negative; Urine Color Yellow (Yellow); Urine Specific Gravity 1.006 (1.001-1.035)
[2019-05-10 19:05] LABS: Blood, Urine Negative (Negative); Urine Urobilinogen < 2.0 EU/DL (0.2-1.0)
[2019-05-10 19:09] LABS: Bacteria,Urine Occasional /HPF (Few); RBC,Urine 1 /HPF (0-4); Squamous Epithelial Cell,Urine Occasional /HPF (0-10); WBC,Urine <1 /HPF (0-6)
[2019-05-10 19:10] LABS: Mucus,Urine Occasional /LPF (Occasional)
[2019-05-10] MEDS: MAGNESIUM OXIDE 400 MG TABLET PO SCH (21:40)
[2019-05-10] MEDS: APIXABAN 5 MG TABLET PO SCH (21:41)
[2019-05-10] MEDS: DONEPEZIL 5 MG TABLET PO SCH (21:41)
[2019-05-10] MEDS: ROSUVASTATIN 20 MG TABLET PO SCH (21:41)
[2019-05-10] MEDS: Icosapent Ethyl [Vascepa] 2 GM PO SCH (21:42)
[2019-05-10] MEDS: ACETAMINOPHEN 325 MG TABLET PO PRN (21:51)
[2019-05-11 05:00] LABS: Basophils # 0.1 10*3/uL (0.0-0.2); Basophils % 0.7 % (0.0-0.8); Eosinophils # 0.3 10*3/uL (0.0-0.87); Hematocrit 45.7 VOL% (42.0-52.0); Hemoglobin 15.3 GM/DL (14.0-18.0); Immature Granulocytes % 0.4 %; Immature Granulocytes Absolute 0.03 #; Lymphocytes # 1.5 10*3/uL (1.4-4.0); Lymphocytes % 22.5 % (21.2-54.2); Mean Corpuscular HGB Conc 33.5 GM/DL (32-36); Mean Corpuscular Volume 92.1 FL (87-102); Monocytes % 10.8 % (1.7-12.7); Neutrophils % 61.6 % (38.7-73.9); Platelet Count 132 T/CUMM (130-400); Red Blood Count 4.96 MC/CUMM (3.8-5.5); Red Cell Distribution Width 13.3 % (9.3-17.3); White Blood Count 6.7 T/CUMM (4-12)
[2019-05-11 05:45] LABS: Albumin 3.5 G/DL (3.4-5.0); Bilirubin,Total 1.1 MG/DL (0.2-1.0); Calcium 9.5 MG/DL (8.5-10.1); Osmolality,Calculated 294.8 MOS/KG (273-304); Total Protein 6.8 G/DL (6.4-8.3)
[2019-05-11] MEDS: SODIUM CHLORIDE 0.45% 1,000 ML IV SCH ×3 (08:44→20:12)
[2019-05-11] MEDS: INSULIN REGULAR 100 UNIT/ML SUBCUT SCH ×4 (08:45→21:34)
[2019-05-11] MEDS: INSULIN REGULAR ** CONC 500 UNIT/ML ** 20 ML VIAL SUBCUT SCH ×3 (08:46→16:07)
[2019-05-11] MEDS: APIXABAN 5 MG TABLET PO SCH ×2 (08:49→21:33)
[2019-05-11] MEDS: SOLIFENACIN 5 MG TABLET PO SCH (08:49)
[2019-05-11] MEDS: MONTELUKAST 10 MG TABLET PO SCH (08:50)
[2019-05-11] MEDS: FENOFIBRATE 160 MG TABLET PO SCH (08:50)
[2019-05-11] MEDS: ASCORBIC ACID 500 MG TABLET PO SCH (08:50)
[2019-05-11] MEDS: MULTIVITAMIN (BEROCCA) TABLET PO SCH (08:50)
[2019-05-11] MEDS: GABAPENTIN 100 MG CAPSULE PO SCH ×3 (08:50→21:33)
[2019-05-11] MEDS: PANTOPRAZOLE 40 MG TABLET PO SCH (08:50)
[2019-05-11] MEDS: MULTIVITAMIN (CENTRUM) TABLET PO SCH (08:50)
[2019-05-11] MEDS: MAGNESIUM OXIDE 400 MG TABLET PO SCH ×2 (08:55→21:33)
[2019-05-11] MEDS: Icosapent Ethyl [Vascepa] 2 GM PO SCH ×2 (08:58→22:23)
[2019-05-11] MEDS ORDERED: NON-FORMULARY MEDICATION (Omeprazole 20 MG) PO SCH (09:00)
[2019-05-11] MEDS ORDERED: GLUCAGON 1 MG VIAL IM PRN (12:01)
[2019-05-11] MEDS ORDERED: DEXTROSE 50% 25 GM/50 ML VIAL IV PRN (12:01)
[2019-05-11] MEDS: INSULIN NPH 100 UNIT/ML SUBCUT SCH (16:06)
[2019-05-11] MEDS: ACETAMINOPHEN 325 MG TABLET PO PRN ×2 (16:16→23:33)
[2019-05-11] MEDS ORDERED: CARVEDILOL 3.125 MG TABLET PO SCH (21:00)
[2019-05-11] MEDS: DONEPEZIL 5 MG TABLET PO SCH (21:33)
[2019-05-11] MEDS: ROSUVASTATIN 20 MG TABLET PO SCH (21:34)
[2019-05-12 05:29] LABS: Calcium 9.4 MG/DL (8.5-10.1); Osmolality,Calculated 290.1 MOS/KG (273-304)
[2019-05-12 07:52] VITALS: BP 111/63
[2019-05-12] MEDS ORDERED: CARVEDILOL 6.25 MG TABLET PO SCH (09:00)
[2019-05-12] MEDS: INSULIN NPH 100 UNIT/ML SUBCUT SCH (09:26)
[2019-05-12] MEDS: INSULIN REGULAR 100 UNIT/ML SUBCUT SCH (09:26)
[2019-05-12] MEDS: INSULIN REGULAR ** CONC 500 UNIT/ML ** 20 ML VIAL SUBCUT SCH (09:30)
[2019-05-12] MEDS: MULTIVITAMIN (CENTRUM) TABLET PO SCH (09:31)
[2019-05-12] MEDS: SOLIFENACIN 5 MG TABLET PO SCH (09:31)
[2019-05-12] MEDS: FENOFIBRATE 160 MG TABLET PO SCH (09:31)
[2019-05-12] MEDS: GABAPENTIN 100 MG CAPSULE PO SCH (09:31)
[2019-05-12] MEDS: MAGNESIUM OXIDE 400 MG TABLET PO SCH (09:31)
[2019-05-12] MEDS: MONTELUKAST 10 MG TABLET PO SCH (09:31)
[2019-05-12] MEDS: PANTOPRAZOLE 40 MG TABLET PO SCH (09:31)
[2019-05-12] MEDS: Icosapent Ethyl [Vascepa] 2 GM PO SCH (09:32)
[2019-05-12] MEDS: APIXABAN 5 MG TABLET PO SCH (09:32)
[2019-05-12] MEDS: MULTIVITAMIN (BEROCCA) TABLET PO SCH (09:32)
[2019-05-12] MEDS: ASCORBIC ACID 500 MG TABLET PO SCH (09:32)
[2019-05-17] MEDS ORDERED: ERGOCALCIFEROL 50,000 UNIT CAPSULE PO SCH (09:00)
== END 2019-05-12 11:43 | disposition home or self-care (01) ==
LOC: EDBD → EDUNIT# → N.ED 10:26 → N.TELEN 10:26
PROVIDERS: ADMIT Internal Medicine Cardiovascular Disease; ATTEND Internal Medicine Cardiovascular Disease

== ENCOUNTER 2021-07-13 08:47 | Inpatient (IN) ==
[2021-07-13] MEDS ORDERED: LACTATED RINGERS 250 ML IV ONE (09:26)
[2021-07-13 10:26] LABS: Bilirubin,Urine Negative (Negative); Blood, Urine Negative (Negative); Glucose,Urine (UA) Negative (Negative); Hyaline Casts,Urine 1 /LPF (0-3); Ketones,Urine Negative (Negative); Nitrite,Urine Negative (Negative); Protein,Urine Negative; RBC,Urine 2 /HPF (0-4); Urine Appearance CLEAR (Clear); Urine Color Yellow (Yellow); Urine Specific Gravity 1.006 (1.001-1.035); Urine Urobilinogen < 2.0 EU/DL (0.2-1.0)
[2021-07-13 10:42] LABS: Basophils % 0.6 % (0.0-0.8); Eosinophils # 0.1 10*3/uL (0.0-0.87); Hematocrit 33.1 VOL% (42.0-52.0); Hemoglobin 10.9 GM/DL (14.0-18.0); Immature Granulocytes % 0.4 %; Immature Granulocytes Absolute 0.02 #; Lymphocytes # 0.7 10*3/uL (1.4-4.0); Lymphocytes % 12.8 % (21.2-54.2); Mean Corpuscular HGB Conc 32.9 GM/DL (32-36); Mean Corpuscular Volume 97.9 FL (87-102); Mean Platelet Volume 11.3 FL (9.6-12.0); Monocytes % 9.6 % (1.7-12.7); Neutrophils % 74.6 % (38.7-73.9); Platelet Count 132 T/CUMM (130-400); Red Blood Count 3.38 MC/CUMM (3.8-5.5); Red Cell Distribution Width 14.6 % (9.3-17.3); White Blood Count 5.1 T/CUMM (4-12)
[2021-07-13 10:53] LABS: Bilirubin,Total 0.9 MG/DL (0.20-1.00); Calcium 9.1 MG/DL (8.5-10.1); Osmolality,Calculated 283.2 MOS/KG (273-304); Potassium 4.1 MMOL/L (3.5-5.1); Total Protein 6.5 G/DL (6.4-8.2)
[2021-07-13] MEDS ORDERED: cefTRIAXone 1,000 MG in SODIUM CHLORIDE 0.9% 100 ML IV STA (12:30)
[2021-07-13] MEDS ORDERED: GLUCAGON 1 MG VIAL IM PRN (13:29)
[2021-07-13] MEDS ORDERED: DEXTROSE 50% 25 GM/50 ML VIAL IV PRN (13:29)
[2021-07-13] MEDS ORDERED: ONDANSETRON 4 MG/2 ML VIAL IV PRN (13:29)
[2021-07-13] MEDS ORDERED: NON-FORMULARY MEDICATION (Albuterol Sulfate [Ventolin Hfa] 90 MCG/PUFF HFA aerosol inhaler INH PRN (13:31)
[2021-07-13] MEDS: GABAPENTIN 100 MG CAPSULE PO SCH ×2 (17:09→20:35)
[2021-07-13] MEDS: DOCUSATE SODIUM 100 MG CAPSULE PO SCH (20:34)
[2021-07-13] MEDS: DONEPEZIL 10 MG TABLET PO SCH (20:34)
[2021-07-13] MEDS: APIXABAN 5 MG TABLET PO SCH (20:34)
[2021-07-13] MEDS: ROSUVASTATIN 20 MG TABLET PO SCH (20:34)
[2021-07-13] MEDS: MAGNESIUM OXIDE 400 MG TABLET PO SCH (20:34)
[2021-07-14 06:17] LABS: Basophils % 0.9 % (0.0-0.8); Eosinophils # 0.1 10*3/uL (0.0-0.87); Eosinophils % 2.7 % (0.00-10.9); Hematocrit 30.3 VOL% (42.0-52.0); Immature Granulocytes % 0.5 %; Immature Granulocytes Absolute 0.02 #; Lymphocytes # 0.7 10*3/uL (1.4-4.0); Lymphocytes % 15.8 % (21.2-54.2); Mean Corpuscular Volume 98.1 FL (87-102); Mean Platelet Volume 11.2 FL (9.6-12.0); Monocytes % 9.6 % (1.7-12.7); Neutrophils % 70.5 % (38.7-73.9); Platelet Count 140 T/CUMM (130-400); Red Blood Count 3.09 MC/CUMM (3.8-5.5); White Blood Count 4.4 T/CUMM (4-12)
[2021-07-14 06:38] LABS: Anisocytosis 1+; Macrocytosis 1+; Platelet Estimate Adequate
[2021-07-14 06:50] LABS: Albumin 2.8 G/DL (3.4-5.0); Bilirubin,Total 1.2 MG/DL (0.20-1.00); Calcium 8.9 MG/DL (8.5-10.1); Osmolality,Calculated 289.1 MOS/KG (273-304); Potassium 3.9 MMOL/L (3.5-5.1); Total Protein 6.1 G/DL (6.4-8.2)
[2021-07-14] MEDS ORDERED: SACUBITRIL VALSARTAN PO SCH (09:00)
[2021-07-14] MEDS ORDERED: NON-FORMULARY MEDICATION (Omeprazole 20 MG capsule,delayed release(DR/EC)) PO SCH (09:00)
[2021-07-14] MEDS ORDERED: SOLIFENACIN 5 MG TABLET PO SCH (09:00)
[2021-07-14] MEDS: DOCUSATE SODIUM 100 MG CAPSULE PO SCH ×2 (09:35→19:50)
[2021-07-14] MEDS: MONTELUKAST 10 MG TABLET PO SCH (09:35)
[2021-07-14] MEDS: MAGNESIUM OXIDE 400 MG TABLET PO SCH ×2 (09:35→19:49)
[2021-07-14] MEDS: MULTIVITAMIN (CENTRUM) TABLET PO SCH (09:35)
[2021-07-14] MEDS: APIXABAN 5 MG TABLET PO SCH ×2 (09:35→19:50)
[2021-07-14] MEDS: GABAPENTIN 100 MG CAPSULE PO SCH ×3 (09:35→19:50)
[2021-07-14] MEDS: cefTRIAXone 1,000 MG in SODIUM CHLORIDE 0.9% 100 ML IV SCH (09:36)
[2021-07-14] MEDS: PANTOPRAZOLE 40 MG TABLET PO SCH (09:36)
[2021-07-14] MEDS: SACUBITRIL/VALSARTAN 49-51 MG TABLET PO SCH ×2 (10:14→19:50)
[2021-07-14] MEDS: carvediloL 12.5 MG TABLET PO SCH ×2 (10:14→19:50)
[2021-07-14] MEDS: TORSEMIDE 20 MG TABLET PO SCH (10:14)
[2021-07-14] MEDS: FENOFIBRATE 160 MG TABLET PO SCH (10:15)
[2021-07-14] MEDS: CARBIDOPA/LEVODOPA 25-100 MG TABLET PO SCH ×2 (10:15→19:51)
[2021-07-14] MEDS: INSULIN LISPRO 100 UNIT/ML SUBCUT SCH ×4 (10:16→20:55)
[2021-07-14] MEDS: MULTIVITAMIN (BEROCCA) TABLET PO SCH (12:57)
[2021-07-14] MEDS: ASCORBIC ACID 500 MG TABLET PO SCH (12:57)
[2021-07-14] MEDS: VERICIGUAT 5 MG PO SCH (13:02)
[2021-07-14] MEDS: ACETAMINOPHEN 325 MG TABLET PO PRN (13:04)
[2021-07-14] MEDS: ROSUVASTATIN 20 MG TABLET PO SCH (19:50)
[2021-07-14] MEDS: DONEPEZIL 10 MG TABLET PO SCH (19:51)
[2021-07-14] MEDS ORDERED: ALUMINUM/MAGNES/SIMETH MAX STR 30 ML UDCUP PO PRN (20:03)
[2021-07-14] MEDS ORDERED: OMEPRAZOLE ODT 20 MG TABLET PER TUBE SCH (20:03)
[2021-07-14] MEDS ORDERED: OMEPRAZOLE ODT 20 MG TABLET PO ONE (20:23)
[2021-07-15] MEDS: carvediloL 12.5 MG TABLET PO SCH ×3 (00:14→21:06)
[2021-07-15] MEDS: DOCUSATE SODIUM 100 MG CAPSULE PO SCH ×3 (00:14→21:07)
[2021-07-15] MEDS: DONEPEZIL 10 MG TABLET PO SCH ×2 (00:14→21:07)
[2021-07-15] MEDS: ROSUVASTATIN 20 MG TABLET PO SCH ×2 (00:15→21:05)
[2021-07-15] MEDS: APIXABAN 5 MG TABLET PO SCH ×3 (00:15→21:13)
[2021-07-15] MEDS: SACUBITRIL/VALSARTAN 49-51 MG TABLET PO SCH ×3 (00:15→21:13)
[2021-07-15] MEDS: MAGNESIUM OXIDE 400 MG TABLET PO SCH ×3 (00:15→21:05)
[2021-07-15] MEDS: GABAPENTIN 100 MG CAPSULE PO SCH ×4 (00:16→21:18)
[2021-07-15] MEDS: CARBIDOPA/LEVODOPA 25-100 MG TABLET PO SCH ×3 (00:16→21:06)
[2021-07-15] MEDS: SOLIFENACIN 5 MG TABLET PO SCH ×2 (00:16→21:21)
[2021-07-15 05:43] LABS: Basophils # 0.1 10*3/uL (0.0-0.2); Basophils % 1.6 % (0.0-0.8); Eosinophils # 0.2 10*3/uL (0.0-0.87); Eosinophils % 4.4 % (0.00-10.9); Hematocrit 30.7 VOL% (42.0-52.0); Hemoglobin 10.1 GM/DL (14.0-18.0); Immature Granulocytes % 0.4 %; Immature Granulocytes Absolute 0.02 #; Lymphocytes # 0.8 10*3/uL (1.4-4.0); Lymphocytes % 15.2 % (21.2-54.2); Mean Corpuscular HGB Conc 32.9 GM/DL (32-36); Mean Corpuscular Volume 98.1 FL (87-102); Mean Platelet Volume 11.8 FL (9.6-12.0); Neutrophils % 68.4 % (38.7-73.9); Platelet Count 118 T/CUMM (130-400); Red Blood Count 3.13 MC/CUMM (3.8-5.5); Red Cell Distribution Width 14.8 % (9.3-17.3)
[2021-07-15] MEDS: MONTELUKAST 10 MG TABLET PO SCH (08:18)
[2021-07-15] MEDS: TORSEMIDE 20 MG TABLET PO SCH (08:18)
[2021-07-15] MEDS: PANTOPRAZOLE 40 MG TABLET PO SCH (08:19)
[2021-07-15] MEDS: cefTRIAXone 1,000 MG in SODIUM CHLORIDE 0.9% 100 ML IV SCH (08:26)
[2021-07-15] MEDS: FENOFIBRATE 160 MG TABLET PO SCH (08:32)
[2021-07-15] MEDS: MULTIVITAMIN (CENTRUM) TABLET PO SCH (08:34)
[2021-07-15 08:37] LABS: Calcium 8.6 MG/DL (8.5-10.1); Osmolality,Calculated 282.4 MOS/KG (273-304); Potassium 4.4 MMOL/L (3.5-5.1)
[2021-07-15] MEDS: ACETAMINOPHEN 325 MG TABLET PO PRN ×2 (08:51→21:07)
[2021-07-15] MEDS: INSULIN LISPRO 100 UNIT/ML SUBCUT SCH ×4 (10:22→21:20)
[2021-07-15] MEDS: MULTIVITAMIN (BEROCCA) TABLET PO SCH (11:43)
[2021-07-15] MEDS: VERICIGUAT 5 MG PO SCH (11:43)
[2021-07-15] MEDS: ASCORBIC ACID 500 MG TABLET PO SCH (11:44)
[2021-07-15] MEDS ORDERED: SODIUM CHLORIDE 0.9% 250 ML IV ONE (13:58)
[2021-07-15] MEDS: INSULIN GLARGINE 100 UNIT/ML SUBCUT SCH (21:04)
[2021-07-16 06:12] LABS: Basophils # 0.1 10*3/uL (0.0-0.2); Basophils % 1.4 % (0.0-0.8); Eosinophils # 0.3 10*3/uL (0.0-0.87); Eosinophils % 7.6 % (0.00-10.9); Hematocrit 31.1 VOL% (42.0-52.0); Hemoglobin 10.3 GM/DL (14.0-18.0); Immature Granulocytes % 0.7 %; Immature Granulocytes Absolute 0.03 #; Lymphocytes # 0.7 10*3/uL (1.4-4.0); Lymphocytes % 16.6 % (21.2-54.2); Mean Corpuscular HGB Conc 33.1 GM/DL (32-36); Mean Platelet Volume 11.6 FL (9.6-12.0); Monocytes % 8.5 % (1.7-12.7); Neutrophils % 65.2 % (38.7-73.9); Platelet Count 135 T/CUMM (130-400); Red Blood Count 3.14 MC/CUMM (3.8-5.5); Red Cell Distribution Width 14.6 % (9.3-17.3); White Blood Count 4.3 T/CUMM (4-12)
[2021-07-16] MEDS: INSULIN LISPRO 100 UNIT/ML SUBCUT SCH ×4 (08:26→20:02)
[2021-07-16] MEDS: carvediloL 12.5 MG TABLET PO SCH ×3 (08:31→20:12)
[2021-07-16] MEDS: SACUBITRIL/VALSARTAN 49-51 MG TABLET PO SCH ×2 (08:32→20:11)
[2021-07-16] MEDS: TORSEMIDE 20 MG TABLET PO SCH (08:33)
[2021-07-16] MEDS: MAGNESIUM OXIDE 400 MG TABLET PO SCH ×2 (08:50→20:11)
[2021-07-16] MEDS: CARBIDOPA/LEVODOPA 25-100 MG TABLET PO SCH ×2 (08:50→20:13)
[2021-07-16] MEDS: APIXABAN 5 MG TABLET PO SCH ×2 (08:50→20:11)
[2021-07-16] MEDS: PANTOPRAZOLE 40 MG TABLET PO SCH (08:50)
[2021-07-16] MEDS: MULTIVITAMIN (CENTRUM) TABLET PO SCH (08:50)
[2021-07-16] MEDS: MONTELUKAST 10 MG TABLET PO SCH (08:50)
[2021-07-16] MEDS: ACETAMINOPHEN 325 MG TABLET PO PRN ×2 (08:51→20:27)
[2021-07-16] MEDS: DOCUSATE SODIUM 100 MG CAPSULE PO SCH ×2 (08:52→20:12)
[2021-07-16] MEDS: GABAPENTIN 100 MG CAPSULE PO SCH ×3 (08:53→20:11)
[2021-07-16] MEDS ORDERED: ERGOCALCIFEROL 50,000 UNIT CAPSULE PO SCH (09:00)
[2021-07-16] MEDS: FENOFIBRATE 160 MG TABLET PO SCH (10:06)
[2021-07-16] MEDS: cefTRIAXone 1,000 MG in SODIUM CHLORIDE 0.9% 100 ML IV SCH (10:06)
[2021-07-16] MEDS ORDERED: SACUBITRIL/VALSARTAN 49-51 MG TABLET PO ONE (10:11)
[2021-07-16 10:45] LABS: Calcium 8.2 MG/DL (8.5-10.1); Osmolality,Calculated 284.4 MOS/KG (273-304); Potassium 4.4 MMOL/L (3.5-5.1)
[2021-07-16] MEDS: ASCORBIC ACID 500 MG TABLET PO SCH (11:58)
[2021-07-16] MEDS: MULTIVITAMIN (BEROCCA) TABLET PO SCH (11:59)
[2021-07-16] MEDS: DONEPEZIL 10 MG TABLET PO SCH (20:11)
[2021-07-16] MEDS: ROSUVASTATIN 20 MG TABLET PO SCH (20:11)
[2021-07-16] MEDS: INSULIN GLARGINE 100 UNIT/ML SUBCUT SCH (20:13)
[2021-07-16] MEDS: SOLIFENACIN 5 MG TABLET PO SCH (20:26)
[2021-07-17] MEDS: ACETAMINOPHEN 325 MG TABLET PO PRN (06:27)
[2021-07-17 07:05] LABS: Calcium 9.1 MG/DL (8.5-10.1); Osmolality,Calculated 283.1 MOS/KG (273-304); Potassium 4.7 MMOL/L (3.5-5.1)
[2021-07-17] MEDS: INSULIN LISPRO 100 UNIT/ML SUBCUT SCH ×4 (07:43→21:46)
[2021-07-17] MEDS: DOCUSATE SODIUM 100 MG CAPSULE PO SCH ×2 (09:24→21:45)
[2021-07-17] MEDS: APIXABAN 5 MG TABLET PO SCH ×2 (09:24→21:44)
[2021-07-17] MEDS: MULTIVITAMIN (CENTRUM) TABLET PO SCH (09:24)
[2021-07-17] MEDS: PANTOPRAZOLE 40 MG TABLET PO SCH (09:24)
[2021-07-17] MEDS: MONTELUKAST 10 MG TABLET PO SCH (09:24)
[2021-07-17] MEDS: MAGNESIUM OXIDE 400 MG TABLET PO SCH ×2 (09:25→21:44)
[2021-07-17] MEDS: CARBIDOPA/LEVODOPA 25-100 MG TABLET PO SCH ×2 (09:25→21:45)
[2021-07-17] MEDS: TORSEMIDE 20 MG TABLET PO SCH (09:25)
[2021-07-17] MEDS: FENOFIBRATE 160 MG TABLET PO SCH (09:25)
[2021-07-17] MEDS: GABAPENTIN 100 MG CAPSULE PO SCH ×3 (09:26→21:45)
[2021-07-17] MEDS: SACUBITRIL/VALSARTAN 49-51 MG TABLET PO SCH ×2 (09:26→21:45)
[2021-07-17] MEDS: carvediloL 12.5 MG TABLET PO SCH ×2 (09:26→21:45)
[2021-07-17] MEDS: cefTRIAXone 1,000 MG in SODIUM CHLORIDE 0.9% 100 ML IV SCH (09:31)
[2021-07-17] MEDS: ASCORBIC ACID 500 MG TABLET PO SCH (11:57)
[2021-07-17] MEDS: MULTIVITAMIN (BEROCCA) TABLET PO SCH (11:57)
[2021-07-17 13:24] LABS: Hematocrit 33.1 VOL% (42.0-52.0); Hemoglobin 10.5 GM/DL (14.0-18.0)
[2021-07-17] MEDS: DONEPEZIL 10 MG TABLET PO SCH (21:44)
[2021-07-17] MEDS: HYDROCORTISONE 25 MG SUPP RECTAL SCH (21:44)
[2021-07-17] MEDS: SOLIFENACIN 5 MG TABLET PO SCH (21:44)
[2021-07-17] MEDS: ROSUVASTATIN 20 MG TABLET PO SCH (21:45)
[2021-07-17] MEDS: INSULIN GLARGINE 100 UNIT/ML SUBCUT SCH (21:47)
[2021-07-18 05:32] LABS: Eosinophils # 0.3 10*3/uL (0.0-0.87); Eosinophils % 6.3 % (0.00-10.9); Hematocrit 30.6 VOL% (42.0-52.0); Hemoglobin 9.7 GM/DL (14.0-18.0); Immature Granulocytes % 0.5 %; Immature Granulocytes Absolute 0.02 #; Lymphocytes # 0.6 10*3/uL (1.4-4.0); Lymphocytes % 14.5 % (21.2-54.2); Mean Corpuscular HGB Conc 31.7 GM/DL (32-36); Mean Platelet Volume 11.1 FL (9.6-12.0); Monocytes % 9.6 % (1.7-12.7); Neutrophils % 68.1 % (38.7-73.9); Platelet Count 134 T/CUMM (130-400); Red Blood Count 3.06 MC/CUMM (3.8-5.5); Red Cell Distribution Width 14.8 % (9.3-17.3); White Blood Count 4.2 T/CUMM (4-12)
[2021-07-18 06:40] LABS: Albumin 2.7 G/DL (3.4-5.0); Calcium 8.9 MG/DL (8.5-10.1); Osmolality,Calculated 287.1 MOS/KG (273-304); Potassium 4.3 MMOL/L (3.5-5.1); Total Protein 6.2 G/DL (6.4-8.2)
[2021-07-18 07:49] VITALS: BP 95/45
[2021-07-18] MEDS: ACETAMINOPHEN 325 MG TABLET PO PRN (10:07)
[2021-07-18] MEDS: TORSEMIDE 20 MG TABLET PO SCH (10:08)
[2021-07-18] MEDS: MULTIVITAMIN (CENTRUM) TABLET PO SCH (10:09)
[2021-07-18] MEDS: CARBIDOPA/LEVODOPA 25-100 MG TABLET PO SCH (10:09)
[2021-07-18] MEDS: MONTELUKAST 10 MG TABLET PO SCH (10:09)
[2021-07-18] MEDS: PANTOPRAZOLE 40 MG TABLET PO SCH (10:09)
[2021-07-18] MEDS: FENOFIBRATE 160 MG TABLET PO SCH (10:10)
[2021-07-18] MEDS: SACUBITRIL/VALSARTAN 49-51 MG TABLET PO SCH (10:10)
[2021-07-18] MEDS: APIXABAN 5 MG TABLET PO SCH (10:10)
[2021-07-18] MEDS: HYDROCORTISONE 25 MG SUPP RECTAL SCH (10:10)
[2021-07-18] MEDS: carvediloL 12.5 MG TABLET PO SCH (10:10)
[2021-07-18] MEDS: cefTRIAXone 1,000 MG in SODIUM CHLORIDE 0.9% 100 ML IV SCH (10:49)
[2021-07-18] MEDS: INSULIN LISPRO 100 UNIT/ML SUBCUT SCH (10:49)
[2021-07-18] MEDS: MAGNESIUM OXIDE 400 MG TABLET PO SCH (10:49)
[2021-07-18] MEDS: DOCUSATE SODIUM 100 MG CAPSULE PO SCH (10:49)
[2021-07-18] MEDS: GABAPENTIN 100 MG CAPSULE PO SCH (10:49)
== END 2021-07-18 12:15 | disposition home or self-care (01) | DRG 638 ==
LOC: EDUNIT# → EDBD → N.EDINP 08:47 → N.ED 08:47 → N.TELEN 16:03
PROVIDERS: ADMIT Family Medicine; ATTEND Family Medicine

== ENCOUNTER 2022-08-13 01:37 | Inpatient (IN) ==
[2022-08-13] MEDS ORDERED: ONDANSETRON 4 MG/2 ML VIAL IV STA (02:00)
[2022-08-13] MEDS ORDERED: PANTOPRAZOLE 40 MG VIAL IV STA (02:00)
[2022-08-13] MEDS ORDERED: PHENYLEPHRINE DRIP 40 MG/250 ML PREMIX IV PRN (02:03)
[2022-08-13 02:15] LABS: Basophils % 0.5 % (0.0-0.8); Eosinophils % 0.5 % (0.00-10.9); Hematocrit 40.8 VOL% (42.0-52.0); Hemoglobin 13.6 GM/DL (14.0-18.0); Immature Granulocytes % 0.3 %; Immature Granulocytes Absolute 0.02 #; Lymphocytes % 14.8 % (21.2-54.2); Mean Corpuscular HGB Conc 33.3 GM/DL (32-36); Mean Platelet Volume 11.2 FL (9.6-12.0); Monocytes # 0.5 10*3/uL (0.11-0.8); Monocytes % 8.1 % (1.7-12.7); Neutrophils % 75.8 % (38.7-73.9); Platelet Count 191 T/CUMM (130-400); Red Cell Distribution Width 14.9 % (9.3-17.3); White Blood Count 6.6 T/CUMM (4-12)
[2022-08-13 02:33] LABS: Albumin 2.6 G/DL (3.4-5.0); Bilirubin,Total 2.6 MG/DL (0.20-1.00); Calcium 9.2 MG/DL (8.5-10.1); Osmolality,Calculated 307.8 MOS/KG (273-304); Potassium 5.8 MMOL/L (3.5-5.1); Total Protein 6.3 G/DL (6.4-8.2)
[2022-08-13] MEDS ORDERED: LACTATED RINGERS 500 ML IV ONE (02:34)
[2022-08-13 02:37] LABS: INR 1.3; Partial Thromboplastin Time 37.9 SECS (23.7-32.9)
[2022-08-13] MEDS ORDERED: SODIUM CHLORIDE 0.9% 1,000 ML IV STA (02:40)
[2022-08-13] MEDS ORDERED: CALCIUM CHLORIDE 1,000 MG/10 ML SYRINGE IV STA (03:03)
[2022-08-13 03:35] LABS: Bilirubin,Urine Negative (Negative); Blood, Urine Moderate mg/dL (Negative); Glucose,Urine (UA) 50 mg/dL (Negative); Hyaline Casts,Urine 13 /LPF (0-3); Ketones,Urine 5 mg/dL (Negative); Mucus,Urine Occasional /LPF (Occasional); Nitrite,Urine Negative (Negative); Protein,Urine 100 mg/dL (Negative); RBC,Urine 19 /HPF (0-4); Squamous Epithelial Cell,Urine Occasional /HPF (0-10); Urine Appearance CLOUDY (Clear); Urine Color Amber (Yellow); Urine Specific Gravity 1.015 (1.001-1.035)
[2022-08-13] MEDS ORDERED: ALBUTEROL 2.5 MG/3 ML NEB RESP TX PRN (04:28)
[2022-08-13] MEDS: SODIUM CHLORIDE 0.9% 1,000 ML IV SCH ×3 (06:59→15:14)
[2022-08-13] MEDS: INSULIN REGULAR 100 UNIT/ML SUBCUT SCH ×4 (08:03→20:59)
[2022-08-13] MEDS: SODIUM BICARBONATE 650 MG TABLET PO SCH ×2 (08:51→20:58)
[2022-08-13] MEDS: CARBIDOPA/LEVODOPA 25-100 MG TABLET PO SCH ×3 (08:51→20:58)
[2022-08-13] MEDS: SODIUM ZIRCONIUM CYCLOSILICATE 10 GM PACK PO SCH ×3 (08:51→20:58)
[2022-08-13] MEDS: MONTELUKAST 10 MG TABLET PO SCH (08:52)
[2022-08-13] MEDS: MULTIVITAMIN (CENTRUM) TABLET PO SCH (08:52)
[2022-08-13] MEDS: ASCORBIC ACID 500 MG TABLET PO SCH (11:01)
[2022-08-13] MEDS: FENOFIBRATE 160 MG TABLET PO SCH (11:01)
[2022-08-13 11:53] LABS: Hepatitis B Core IgM Quant 0.14 Index; Hepatitis B Surface Ag Quant < 0.10 Index; Hepatitis B Surface Ag Result Non-Reactive (NonReactive); Hepatitis C Virus Ab Quant 0.05 Index; Hepatitis C Virus Ab Result Non-Reactive (NonReactive)
[2022-08-13 18:02] LABS: Arterial Base Excess iSTAT -6 MMOL/L (-2.5-2.5); Arterial Bicarbonate iSTAT 17.6 MMOL/L (20-26); Arterial O2 Saturation iSTAT 96 % (95-100); Arterial PCO2 iSTAT 29 MM HG (35-48); Arterial PO2 iSTAT 84 MM HG (80-95); Arterial Total CO2 iSTAT 18 MMO/L (23-27); Arterial pH iSTAT 7.392 (7.35-7.45)
[2022-08-13] MEDS: OXYBUTYNIN XL 5 MG TABLET PO SCH (20:58)
[2022-08-13] MEDS: DONEPEZIL 10 MG TABLET PO SCH (20:58)
[2022-08-13] MEDS ORDERED: EZETIMIBE 10 MG TABLET PO SCH (21:00)
[2022-08-13] MEDS ORDERED: ROSUVASTATIN 20 MG TABLET PO SCH (21:00)
[2022-08-13] MEDS: OMEGA 3 ACID ETHYL ESTERS 1 GM CAPSULE PO SCH (21:00)
[2022-08-13 21:56] LABS: Hematocrit 40.6 VOL% (42.0-52.0); Hemoglobin 13.5 GM/DL (14.0-18.0)
[2022-08-13 22:19] LABS: Calcium 9.4 MG/DL (8.5-10.1); Osmolality,Calculated 303.9 MOS/KG (273-304); Phosphorous 4.5 MG/DL (2.5-4.9); Potassium 5.6 MMOL/L (3.5-5.1); Uric Acid 12.9 MG/DL (3.5-7.2)
[2022-08-13] MEDS ORDERED: SODIUM BICARBONATE 50 MEQ/50 ML VIAL IV ONE (23:00)
[2022-08-14] MEDS: SODIUM CHLORIDE 0.9% 1,000 ML IV SCH ×2 (03:43→05:21)
[2022-08-14 05:40] LABS: Basophils % 0.4 % (0.0-0.8); Eosinophils % 0.6 % (0.00-10.9); Hematocrit 36.9 VOL% (42.0-52.0); Immature Granulocytes % 0.6 %; Immature Granulocytes Absolute 0.04 #; Lymphocytes # 0.9 10*3/uL (1.4-4.0); Lymphocytes % 13.9 % (21.2-54.2); Mean Corpuscular HGB Conc 32.5 GM/DL (32-36); Mean Corpuscular Volume 103.1 FL (87-102); Mean Platelet Volume 11.2 FL (9.6-12.0); Monocytes # 0.5 10*3/uL (0.11-0.8); Monocytes % 7.4 % (1.7-12.7); Neutrophils % 77.1 % (38.7-73.9); Platelet Count 149 T/CUMM (130-400); Red Blood Count 3.58 MC/CUMM (3.8-5.5); Red Cell Distribution Width 15.3 % (9.3-17.3); White Blood Count 6.8 T/CUMM (4-12)
[2022-08-14 06:07] LABS: Bilirubin,Total 1.8 MG/DL (0.20-1.00); Calcium 8.6 MG/DL (8.5-10.1); Osmolality,Calculated 306.7 MOS/KG (273-304); Potassium 5.1 MMOL/L (3.5-5.1); Total Protein 5.8 G/DL (6.4-8.2)
[2022-08-14] MEDS ORDERED: APIXABAN 5 MG TABLET PO SCH (09:00)
[2022-08-14] MEDS: ACETAMINOPHEN 325 MG TABLET PO PRN ×2 (09:08→18:17)
[2022-08-14] MEDS: MONTELUKAST 10 MG TABLET PO SCH (09:10)
[2022-08-14] MEDS: OMEGA 3 ACID ETHYL ESTERS 1 GM CAPSULE PO SCH ×2 (09:10→21:45)
[2022-08-14] MEDS: SODIUM BICARBONATE 650 MG TABLET PO SCH ×3 (09:10→21:46)
[2022-08-14] MEDS: CARBIDOPA/LEVODOPA 25-100 MG TABLET PO SCH ×3 (09:11→21:46)
[2022-08-14] MEDS: SODIUM ZIRCONIUM CYCLOSILICATE 10 GM PACK PO SCH ×3 (09:11→21:47)
[2022-08-14] MEDS: MULTIVITAMIN (CENTRUM) TABLET PO SCH (09:11)
[2022-08-14] MEDS: INSULIN REGULAR 100 UNIT/ML SUBCUT SCH ×4 (09:26→21:46)
[2022-08-14] MEDS ORDERED: ENOXAPARIN 100 MG/ML SYRINGE SUBCUT SCH (11:00)
[2022-08-14] MEDS: FENOFIBRATE 160 MG TABLET PO SCH (11:13)
[2022-08-14] MEDS: ASCORBIC ACID 500 MG TABLET PO SCH (11:14)
[2022-08-14 12:59] LABS: Hematocrit 37.6 VOL% (42.0-52.0); Hemoglobin 12.4 GM/DL (14.0-18.0)
[2022-08-14] MEDS: APIXABAN 5 MG TABLET PO SCH ×2 (14:47→22:02)
[2022-08-14] MEDS: DOBUTamine 500 MG/250 ML PREMIX IV PRN ×2 (15:12→21:24)
[2022-08-14] MEDS: PHENYLEPHRINE DRIP 40 MG/250 ML PREMIX IV PRN (21:24)
[2022-08-14 21:43] LABS: Calcium 8.6 MG/DL (8.5-10.1); Osmolality,Calculated 314.4 MOS/KG (273-304); Potassium 4.3 MMOL/L (3.5-5.1)
[2022-08-14] MEDS: OXYBUTYNIN XL 5 MG TABLET PO SCH (21:46)
[2022-08-14] MEDS: DONEPEZIL 10 MG TABLET PO SCH (21:46)
[2022-08-14 22:53] LABS: Basophils % 0.3 % (0.0-0.8); Eosinophils % 0.1 % (0.00-10.9); Hematocrit 32.4 VOL% (42.0-52.0); Hemoglobin 10.8 GM/DL (14.0-18.0); Immature Granulocytes % 0.6 %; Immature Granulocytes Absolute 0.04 #; Lymphocytes # 0.8 10*3/uL (1.4-4.0); Mean Corpuscular HGB Conc 33.3 GM/DL (32-36); Mean Corpuscular Volume 102.2 FL (87-102); Mean Platelet Volume 10.8 FL (9.6-12.0); Monocytes # 0.5 10*3/uL (0.11-0.8); Monocytes % 7.4 % (1.7-12.7); Neutrophils % 80.6 % (38.7-73.9); Platelet Count 137 T/CUMM (130-400); Red Blood Count 3.17 MC/CUMM (3.8-5.5); Red Cell Distribution Width 15.5 % (9.3-17.3); White Blood Count 6.9 T/CUMM (4-12)
[2022-08-15] MEDS: DOBUTamine 500 MG/250 ML PREMIX IV PRN ×2 (01:14→07:58)
[2022-08-15] MEDS: PHENYLEPHRINE DRIP 40 MG/250 ML PREMIX IV PRN ×5 (02:08→11:23)
[2022-08-15 04:08] LABS: Basophils % 0.4 % (0.0-0.8); Hematocrit 32.5 VOL% (42.0-52.0); Hemoglobin 10.7 GM/DL (14.0-18.0); Immature Granulocytes % 0.3 %; Immature Granulocytes Absolute 0.02 #; Lymphocytes # 0.6 10*3/uL (1.4-4.0); Lymphocytes % 8.2 % (21.2-54.2); Mean Corpuscular HGB Conc 32.9 GM/DL (32-36); Mean Corpuscular Volume 103.8 FL (87-102); Mean Platelet Volume 10.7 FL (9.6-12.0); Monocytes # 0.5 10*3/uL (0.11-0.8); Monocytes % 5.9 % (1.7-12.7); Neutrophils % 85.2 % (38.7-73.9); Platelet Count 137 T/CUMM (130-400); Red Blood Count 3.13 MC/CUMM (3.8-5.5); Red Cell Distribution Width 15.8 % (9.3-17.3); White Blood Count 7.8 T/CUMM (4-12)
[2022-08-15 04:29] LABS: Albumin 1.9 G/DL (3.4-5.0); Bilirubin,Total 1.8 MG/DL (0.20-1.00); Calcium 8.4 MG/DL (8.5-10.1); Osmolality,Calculated 313.4 MOS/KG (273-304); Phosphorous 5.1 MG/DL (2.5-4.9); Potassium 4.3 MMOL/L (3.5-5.1); Total Protein 5.3 G/DL (6.4-8.2)
[2022-08-15 05:46] LABS: Arterial Base Excess iSTAT -6 MMOL/L (-2.5-2.5); Arterial Bicarbonate iSTAT 18.1 MMOL/L (20-26); Arterial O2 Saturation iSTAT 97 % (95-100); Arterial PCO2 iSTAT 32 MM HG (35-48); Arterial PO2 iSTAT 90 MM HG (80-95); Arterial Total CO2 iSTAT 19 MMO/L (23-27); Arterial pH iSTAT 7.364 (7.35-7.45)
[2022-08-15] MEDS: INSULIN REGULAR 100 UNIT/ML SUBCUT SCH ×4 (07:59→20:08)
[2022-08-15] MEDS: ONDANSETRON 4 MG/2 ML VIAL IV PRN ×2 (09:00→15:58)
[2022-08-15] MEDS: PANTOPRAZOLE 40 MG VIAL IV SCH (09:06)
[2022-08-15] MEDS ORDERED: NOREPINEPHRINE 8 MG in SODIUM CHLORIDE 0.9% 242 ML IV PRN (09:32)
[2022-08-15] MEDS ORDERED: NOREPINEPHRINE 4 MG/4 ML VIAL IV ONE (09:41)
[2022-08-15] MEDS: CARBIDOPA/LEVODOPA 25-100 MG TABLET PO SCH ×3 (10:09→20:09)
[2022-08-15] MEDS: MONTELUKAST 10 MG TABLET PO SCH (10:09)
[2022-08-15] MEDS: OMEGA 3 ACID ETHYL ESTERS 1 GM CAPSULE PO SCH ×2 (10:09→20:08)
[2022-08-15] MEDS: MULTIVITAMIN (CENTRUM) TABLET PO SCH (10:10)
[2022-08-15] MEDS: SODIUM BICARBONATE 650 MG TABLET PO SCH ×3 (10:10→20:09)
[2022-08-15] MEDS: APIXABAN 5 MG TABLET PO SCH ×2 (10:10→20:08)
[2022-08-15] MEDS ORDERED: MIDAZOLAM 2 MG/2 ML VIAL IV ONE (10:20)
[2022-08-15] MEDS ORDERED: MIDAZOLAM 2 MG/2 ML VIAL ONE (10:21)
[2022-08-15] MEDS: FENOFIBRATE 160 MG TABLET PO SCH (12:15)
[2022-08-15] MEDS: ASCORBIC ACID 500 MG TABLET PO SCH (12:16)
[2022-08-15] MEDS: PHENYLEPHRINE INJ 160 MG in SODIUM CHLORIDE 0.9% 234 ML IV PRN ×3 (12:45→23:33)
[2022-08-15] MEDS: DONEPEZIL 10 MG TABLET PO SCH (20:08)
[2022-08-15] MEDS: OXYBUTYNIN XL 5 MG TABLET PO SCH (20:08)
[2022-08-15] MEDS: ACETAMINOPHEN 325 MG TABLET PO PRN (20:25)
[2022-08-16 03:55] LABS: ABG Base Excess -4.7 MMOL/L (-2.5-2.5); ABG HCO3 20.5 MMOL/L (20-26); ABG Oxygen Saturation 99.1 % (95-100); ABG PH 7.459 (7.35-7.45); ABG TCO2 15.7 MMOL/L (23-27); Basophils % 0.2 % (0.0-0.8); Eosinophils % 0.5 % (0.00-10.9); Hematocrit 33.5 VOL% (42.0-52.0); Hemoglobin 11.3 GM/DL (14.0-18.0); Immature Granulocytes % 0.3 %; Immature Granulocytes Absolute 0.03 #; Lymphocytes # 0.7 10*3/uL (1.4-4.0); Lymphocytes % 7.8 % (21.2-54.2); Mean Corpuscular HGB Conc 33.7 GM/DL (32-36); Mean Corpuscular Volume 100.6 FL (87-102); Mean Platelet Volume 10.7 FL (9.6-12.0); Monocytes # 0.6 10*3/uL (0.11-0.8); Monocytes % 6.6 % (1.7-12.7); Neutrophils % 84.6 % (38.7-73.9); Platelet Count 161 T/CUMM (130-400); Red Blood Count 3.33 MC/CUMM (3.8-5.5); Red Cell Distribution Width 15.6 % (9.3-17.3); White Blood Count 8.7 T/CUMM (4-12)
[2022-08-16 04:16] LABS: Albumin 1.9 G/DL (3.4-5.0); Bilirubin,Total 1.8 MG/DL (0.20-1.00); Calcium 8.9 MG/DL (8.5-10.1); Osmolality,Calculated 305.8 MOS/KG (273-304); Potassium 4.6 MMOL/L (3.5-5.1); Total Protein 5.4 G/DL (6.4-8.2)
[2022-08-16] MEDS: INSULIN REGULAR 100 UNIT/ML SUBCUT SCH ×4 (07:42→20:08)
[2022-08-16] MEDS: MULTIVITAMIN (CENTRUM) TABLET PO SCH (08:22)
[2022-08-16] MEDS: MONTELUKAST 10 MG TABLET PO SCH (08:22)
[2022-08-16] MEDS: APIXABAN 5 MG TABLET PO SCH (08:22)
[2022-08-16] MEDS: OMEGA 3 ACID ETHYL ESTERS 1 GM CAPSULE PO SCH ×2 (08:22→20:08)
[2022-08-16] MEDS: CARBIDOPA/LEVODOPA 25-100 MG TABLET PO SCH ×3 (08:22→20:08)
[2022-08-16] MEDS: SODIUM BICARBONATE 650 MG TABLET PO SCH ×3 (08:22→20:08)
[2022-08-16] MEDS: PANTOPRAZOLE 40 MG VIAL IV SCH (08:22)
[2022-08-16] MEDS: PHENYLEPHRINE INJ 160 MG in SODIUM CHLORIDE 0.9% 234 ML IV PRN ×2 (09:31→18:44)
[2022-08-16] MEDS: FENOFIBRATE 160 MG TABLET PO SCH (12:25)
[2022-08-16] MEDS: ASCORBIC ACID 500 MG TABLET PO SCH (12:25)
[2022-08-16] MEDS: ACETAMINOPHEN 325 MG TABLET PO PRN (12:56)
[2022-08-16] MEDS: ONDANSETRON 4 MG/2 ML VIAL IV PRN ×2 (17:40→23:27)
[2022-08-16] MEDS: OXYBUTYNIN XL 5 MG TABLET PO SCH (20:08)
[2022-08-16] MEDS: DONEPEZIL 10 MG TABLET PO SCH (20:08)
[2022-08-17] MEDS: PHENYLEPHRINE INJ 160 MG in SODIUM CHLORIDE 0.9% 234 ML IV PRN ×3 (03:15→22:45)
[2022-08-17 04:30] LABS: ABG Base Excess -5.6 MMOL/L (-2.5-2.5); ABG HCO3 19.8 MMOL/L (20-26); ABG Oxygen Saturation 96.8 % (95-100); ABG PCO2 25.1 MM HG (35-48); ABG PH 7.441 (7.35-7.45); ABG PO2 84.6 MM HG (80-95); ABG TCO2 15.2 MMOL/L (23-27)
[2022-08-17 04:37] LABS: Basophils # 0.1 10*3/uL (0.0-0.2); Basophils % 0.6 % (0.0-0.8); Eosinophils % 0.4 % (0.00-10.9); Hematocrit 34.6 VOL% (42.0-52.0); Hemoglobin 11.6 GM/DL (14.0-18.0); Immature Granulocytes % 0.2 %; Immature Granulocytes Absolute 0.02 #; Lymphocytes # 0.7 10*3/uL (1.4-4.0); Lymphocytes % 8.5 % (21.2-54.2); Mean Corpuscular HGB Conc 33.5 GM/DL (32-36); Mean Corpuscular Volume 101.2 FL (87-102); Mean Platelet Volume 10.9 FL (9.6-12.0); Monocytes # 0.6 10*3/uL (0.11-0.8); Monocytes % 7.1 % (1.7-12.7); Neutrophils % 83.2 % (38.7-73.9); Platelet Count 168 T/CUMM (130-400); Red Blood Count 3.42 MC/CUMM (3.8-5.5); Red Cell Distribution Width 15.9 % (9.3-17.3); White Blood Count 8.1 T/CUMM (4-12)
[2022-08-17 04:51] LABS: Bilirubin,Total 2.1 MG/DL (0.20-1.00); Calcium 8.9 MG/DL (8.5-10.1); Osmolality,Calculated 312.4 MOS/KG (273-304); Potassium 4.9 MMOL/L (3.5-5.1); Total Protein 5.7 G/DL (6.4-8.2)
[2022-08-17] MEDS ORDERED: ceFAZolin 1,000 MG VIAL ONE ×2 (08:45→11:17)
[2022-08-17] MEDS: INSULIN REGULAR 100 UNIT/ML SUBCUT SCH ×4 (09:08→21:01)
[2022-08-17] MEDS: ONDANSETRON 4 MG/2 ML VIAL IV PRN (10:19)
[2022-08-17] MEDS ORDERED: BUPIVACAINE MPF 0.25% 10 ML VIAL ONE (10:45)
[2022-08-17] MEDS ORDERED: HEPARIN 5,000 UNIT/1 ML VIAL ONE (10:45)
[2022-08-17] MEDS ORDERED: LIDOCAINE MPF 1% /EPI 30 ML VIAL ONE (10:45)
[2022-08-17] MEDS ORDERED: KETAMINE 500 MG/10 ML VIAL ONE (10:48)
[2022-08-17] MEDS ORDERED: MIDAZOLAM 2 MG/2 ML VIAL ONE (10:49)
[2022-08-17] MEDS ORDERED: PHENYLEPHRINE 1 MG/10 ML SYRINGE IV ONE (11:12)
[2022-08-17] MEDS: OMEGA 3 ACID ETHYL ESTERS 1 GM CAPSULE PO SCH ×2 (13:29→21:21)
[2022-08-17] MEDS: MONTELUKAST 10 MG TABLET PO SCH (13:29)
[2022-08-17] MEDS: MULTIVITAMIN (CENTRUM) TABLET PO SCH (13:29)
[2022-08-17] MEDS: PANTOPRAZOLE 40 MG VIAL IV SCH (13:30)
[2022-08-17] MEDS: ASCORBIC ACID 500 MG TABLET PO SCH (14:09)
[2022-08-17] MEDS: FENOFIBRATE 160 MG TABLET PO SCH (14:09)
[2022-08-17] MEDS: SODIUM BICARBONATE 650 MG TABLET PO SCH ×3 (15:07→21:21)
[2022-08-17] MEDS: CARBIDOPA/LEVODOPA 25-100 MG TABLET PO SCH ×3 (15:15→21:21)
[2022-08-17] MEDS: DONEPEZIL 10 MG TABLET PO SCH (21:21)
[2022-08-17] MEDS: OXYBUTYNIN XL 5 MG TABLET PO SCH (21:21)
[2022-08-18 03:18] LABS: ABG Base Excess -4.7 MMOL/L (-2.5-2.5); ABG HCO3 20.6 MMOL/L (20-26); ABG Oxygen Saturation 96.2 % (95-100); ABG PH 7.447 (7.35-7.45); ABG PO2 79.8 MM HG (80-95); ABG TCO2 15.7 MMOL/L (23-27)
[2022-08-18 03:20] LABS: Basophils % 0.4 % (0.0-0.8); Eosinophils # 0.1 10*3/uL (0.0-0.87); Eosinophils % 1.3 % (0.00-10.9); Hematocrit 35.6 VOL% (42.0-52.0); Immature Granulocytes % 0.5 %; Immature Granulocytes Absolute 0.04 #; Lymphocytes # 0.8 10*3/uL (1.4-4.0); Lymphocytes % 9.9 % (21.2-54.2); Mean Corpuscular HGB Conc 33.7 GM/DL (32-36); Mean Corpuscular Volume 101.4 FL (87-102); Mean Platelet Volume 10.4 FL (9.6-12.0); Monocytes # 0.7 10*3/uL (0.11-0.8); Monocytes % 7.8 % (1.7-12.7); Neutrophils % 80.1 % (38.7-73.9); Platelet Count 179 T/CUMM (130-400); Red Blood Count 3.51 MC/CUMM (3.8-5.5); Red Cell Distribution Width 16.3 % (9.3-17.3); White Blood Count 8.4 T/CUMM (4-12)
[2022-08-18 03:44] LABS: Bilirubin,Total 2.4 MG/DL (0.20-1.00); Osmolality,Calculated 302.2 MOS/KG (273-304); Phosphorous 5.5 MG/DL (2.5-4.9); Potassium 4.8 MMOL/L (3.5-5.1); Total Protein 5.7 G/DL (6.4-8.2)
[2022-08-18] MEDS: PHENYLEPHRINE INJ 160 MG in SODIUM CHLORIDE 0.9% 234 ML IV PRN ×2 (07:30→17:19)
[2022-08-18] MEDS: INSULIN REGULAR 100 UNIT/ML SUBCUT SCH ×4 (07:33→20:33)
[2022-08-18] MEDS: PANTOPRAZOLE 40 MG VIAL IV SCH (08:27)
[2022-08-18] MEDS: SODIUM BICARBONATE 650 MG TABLET PO SCH ×3 (08:27→21:10)
[2022-08-18] MEDS: MULTIVITAMIN (CENTRUM) TABLET PO SCH (08:27)
[2022-08-18] MEDS: OMEGA 3 ACID ETHYL ESTERS 1 GM CAPSULE PO SCH ×2 (08:28→21:09)
[2022-08-18] MEDS: MONTELUKAST 10 MG TABLET PO SCH (08:28)
[2022-08-18] MEDS: CARBIDOPA/LEVODOPA 25-100 MG TABLET PO SCH ×3 (08:34→21:10)
[2022-08-18] MEDS: ASCORBIC ACID 500 MG TABLET PO SCH (11:47)
[2022-08-18] MEDS: ONDANSETRON 4 MG/2 ML VIAL IV PRN ×2 (17:20→21:10)
[2022-08-18] MEDS: MORPHINE 2 MG/1 ML SYRINGE IV PRN (21:10)
[2022-08-18] MEDS: DONEPEZIL 10 MG TABLET PO SCH (21:10)
[2022-08-18] MEDS: OXYBUTYNIN XL 5 MG TABLET PO SCH (21:10)
[2022-08-19] MEDS: PHENYLEPHRINE INJ 160 MG in SODIUM CHLORIDE 0.9% 234 ML IV PRN ×3 (01:04→20:50)
[2022-08-19] MEDS: MORPHINE 2 MG/1 ML SYRINGE IV PRN (04:12)
[2022-08-19] MEDS: ONDANSETRON 4 MG/2 ML VIAL IV PRN (04:12)
[2022-08-19 04:15] LABS: Basophils % 0.3 % (0.0-0.8); Eosinophils # 0.1 10*3/uL (0.0-0.87); Eosinophils % 0.7 % (0.00-10.9); Hematocrit 36.5 VOL% (42.0-52.0); Hemoglobin 12.3 GM/DL (14.0-18.0); Immature Granulocytes % 0.6 %; Immature Granulocytes Absolute 0.05 #; Lymphocytes # 0.7 10*3/uL (1.4-4.0); Lymphocytes % 8.4 % (21.2-54.2); Mean Corpuscular HGB Conc 33.7 GM/DL (32-36); Mean Corpuscular Volume 102.5 FL (87-102); Mean Platelet Volume 10.8 FL (9.6-12.0); Monocytes # 0.7 10*3/uL (0.11-0.8); Monocytes % 7.8 % (1.7-12.7); Neutrophils % 82.2 % (38.7-73.9); Platelet Count 216 T/CUMM (130-400); Red Blood Count 3.56 MC/CUMM (3.8-5.5); Red Cell Distribution Width 16.7 % (9.3-17.3); White Blood Count 8.8 T/CUMM (4-12)
[2022-08-19 04:19] LABS: ABG Base Excess -6.1 MMOL/L (-2.5-2.5); ABG HCO3 19.5 MMOL/L (20-26); ABG Oxygen Saturation 97.9 % (95-100); ABG PCO2 28.4 MM HG (35-48); ABG PH 7.398 (7.35-7.45); ABG TCO2 15.6 MMOL/L (23-27)
[2022-08-19 04:32] LABS: Albumin 1.9 G/DL (3.4-5.0); Bilirubin,Total 2.5 MG/DL (0.20-1.00); Calcium 8.9 MG/DL (8.5-10.1); Osmolality,Calculated 307.2 MOS/KG (273-304); Potassium 5.5 MMOL/L (3.5-5.1)
[2022-08-19] MEDS: INSULIN REGULAR 100 UNIT/ML SUBCUT SCH ×4 (07:38→20:53)
[2022-08-19] MEDS: OMEGA 3 ACID ETHYL ESTERS 1 GM CAPSULE PO SCH ×2 (08:38→20:52)
[2022-08-19] MEDS: MULTIVITAMIN (CENTRUM) TABLET PO SCH (08:38)
[2022-08-19] MEDS: ERGOCALCIFEROL 50,000 UNIT CAPSULE PO SCH (08:38)
[2022-08-19] MEDS: SODIUM BICARBONATE 650 MG TABLET PO SCH ×3 (08:38→20:52)
[2022-08-19] MEDS: PANTOPRAZOLE 40 MG VIAL IV SCH (08:39)
[2022-08-19] MEDS: CARBIDOPA/LEVODOPA 25-100 MG TABLET PO SCH ×3 (08:39→20:53)
[2022-08-19] MEDS: MONTELUKAST 10 MG TABLET PO SCH (08:39)
[2022-08-19] MEDS: ASCORBIC ACID 500 MG TABLET PO SCH (11:36)
[2022-08-19] MEDS: OXYBUTYNIN XL 5 MG TABLET PO SCH (20:52)
[2022-08-19] MEDS: DONEPEZIL 10 MG TABLET PO SCH (20:52)
[2022-08-20 04:50] LABS: Basophils % 0.4 % (0.0-0.8); Eosinophils # 0.2 10*3/uL (0.0-0.87); Hemoglobin 11.6 GM/DL (14.0-18.0); Immature Granulocytes % 0.4 %; Immature Granulocytes Absolute 0.03 #; Lymphocytes # 0.8 10*3/uL (1.4-4.0); Lymphocytes % 10.1 % (21.2-54.2); Mean Corpuscular HGB Conc 33.1 GM/DL (32-36); Mean Corpuscular Volume 102.9 FL (87-102); Mean Platelet Volume 10.4 FL (9.6-12.0); Monocytes # 0.7 10*3/uL (0.11-0.8); Monocytes % 8.7 % (1.7-12.7); Neutrophils % 77.4 % (38.7-73.9); Platelet Count 128 T/CUMM (130-400); Red Cell Distribution Width 16.8 % (9.3-17.3); White Blood Count 7.7 T/CUMM (4-12)
[2022-08-20 05:03] LABS: Calcium 8.9 MG/DL (8.5-10.1); Potassium 4.5 MMOL/L (3.5-5.1)
[2022-08-20] MEDS: ONDANSETRON 4 MG/2 ML VIAL IV PRN (06:35)
[2022-08-20] MEDS: INSULIN REGULAR 100 UNIT/ML SUBCUT SCH ×4 (07:38→20:31)
[2022-08-20] MEDS ORDERED: POLYVINYL 0.5%/POVIDONE 0.6% OPH SOLN 15 ML BOTTLE BOTH EYES PRN (08:03)
[2022-08-20] MEDS: SODIUM BICARBONATE 650 MG TABLET PO SCH ×3 (08:09→20:32)
[2022-08-20] MEDS: MONTELUKAST 10 MG TABLET PO SCH (08:09)
[2022-08-20] MEDS: OMEGA 3 ACID ETHYL ESTERS 1 GM CAPSULE PO SCH ×2 (08:10→20:31)
[2022-08-20] MEDS: CARBIDOPA/LEVODOPA 25-100 MG TABLET PO SCH ×3 (08:10→20:32)
[2022-08-20] MEDS: MULTIVITAMIN (CENTRUM) TABLET PO SCH (08:10)
[2022-08-20] MEDS: FAMOTIDINE 20 MG/2 ML VIAL IV SCH (09:22)
[2022-08-20] MEDS ORDERED: DIAZEPAM 5 MG TABLET PO ONE (09:38)
[2022-08-20] MEDS: ASCORBIC ACID 500 MG TABLET PO SCH (11:37)
[2022-08-20] MEDS: OXYBUTYNIN XL 5 MG TABLET PO SCH (20:31)
[2022-08-20] MEDS: DONEPEZIL 10 MG TABLET PO SCH (20:31)
[2022-08-21] MEDS: PHENYLEPHRINE INJ 160 MG in SODIUM CHLORIDE 0.9% 234 ML IV PRN (03:02)
[2022-08-21 04:48] LABS: Basophils % 0.4 % (0.0-0.8); Eosinophils # 0.1 10*3/uL (0.0-0.87); Eosinophils % 1.2 % (0.00-10.9); Hematocrit 37.1 VOL% (42.0-52.0); Hemoglobin 12.2 GM/DL (14.0-18.0); Immature Granulocytes % 0.5 %; Immature Granulocytes Absolute 0.05 #; Lymphocytes # 0.7 10*3/uL (1.4-4.0); Lymphocytes % 6.7 % (21.2-54.2); Mean Corpuscular HGB Conc 32.9 GM/DL (32-36); Mean Corpuscular Volume 104.5 FL (87-102); Mean Platelet Volume 10.3 FL (9.6-12.0); Monocytes # 0.8 10*3/uL (0.11-0.8); NRBC # 0.02 10*3/uL; Neutrophils % 83.2 % (38.7-73.9); Platelet Count 144 T/CUMM (130-400); Red Blood Count 3.55 MC/CUMM (3.8-5.5); Red Cell Distribution Width 16.8 % (9.3-17.3); White Blood Count 9.6 T/CUMM (4-12)
[2022-08-21 05:06] LABS: Calcium 8.6 MG/DL (8.5-10.1); INR 1.2; Osmolality,Calculated 288.1 MOS/KG (273-304); PT Patient Result 13.1 SECS (10.1-12.1); Partial Thromboplastin Time 31.9 SECS (23.7-32.9); Potassium 4.2 MMOL/L (3.5-5.1)
[2022-08-21 05:13] LABS: Folate > 24.00 NG/ML (5.38-24.0); Vitamin B12 > 2000 PG/ML (211-911)
[2022-08-21 05:16] LABS: % Iron Saturation 24.7 % (18-50); Albumin 1.9 G/DL (3.4-5.0); Calcium 8.7 MG/DL (8.5-10.1); Ferritin 2880.9 ng/mL (26-388); Free T4 (Free Thyroxine) 1.65 NG/DL (0.76-1.46); Osmolality,Calculated 288.1 MOS/KG (273-304); Potassium 4.2 MMOL/L (3.5-5.1); Thyroid Stimulating Hormone 2.16 uIU/ml (0.358-3.74); Total Protein 5.8 G/DL (6.4-8.2)
[2022-08-21] MEDS: INSULIN REGULAR 100 UNIT/ML SUBCUT SCH ×4 (08:31→20:14)
[2022-08-21] MEDS: CARBIDOPA/LEVODOPA 25-100 MG TABLET PO SCH ×3 (09:21→15:52)
[2022-08-21] MEDS: OMEGA 3 ACID ETHYL ESTERS 1 GM CAPSULE PO SCH ×2 (09:21→20:13)
[2022-08-21] MEDS: MULTIVITAMIN (CENTRUM) TABLET PO SCH (09:21)
[2022-08-21] MEDS: MONTELUKAST 10 MG TABLET PO SCH (09:22)
[2022-08-21] MEDS: SODIUM BICARBONATE 650 MG TABLET PO SCH (09:22)
[2022-08-21] MEDS: FAMOTIDINE 20 MG/2 ML VIAL IV SCH (09:22)
[2022-08-21] MEDS: MIDODRINE 5 MG TABLET PO SCH ×3 (09:23→20:13)
[2022-08-21] MEDS: ASCORBIC ACID 500 MG TABLET PO SCH (11:17)
[2022-08-21] MEDS ORDERED: HEPARIN 10,000 UNIT/10 ML VIAL IV PRN (13:51)
[2022-08-21 19:10] LABS: HIT Interpretation Negative (Negative)
[2022-08-21] MEDS: OXYBUTYNIN XL 5 MG TABLET PO SCH (20:13)
[2022-08-21] MEDS: DONEPEZIL 10 MG TABLET PO SCH (20:13)
[2022-08-21] MEDS: PHENOL 1.4% THROAT SPRAY 177 ML BOTTLE PO PRN (20:14)
[2022-08-22] MEDS: PHENYLEPHRINE INJ 160 MG in SODIUM CHLORIDE 0.9% 234 ML IV PRN (00:20)
[2022-08-22 03:21] LABS: Basophils % 0.5 % (0.0-0.8); Eosinophils # 0.1 10*3/uL (0.0-0.87); Eosinophils % 1.7 % (0.00-10.9); Hematocrit 36.4 VOL% (42.0-52.0); Hemoglobin 11.9 GM/DL (14.0-18.0); Immature Granulocytes % 0.6 %; Immature Granulocytes Absolute 0.05 #; Lymphocytes # 0.7 10*3/uL (1.4-4.0); Lymphocytes % 8.3 % (21.2-54.2); Mean Corpuscular HGB Conc 32.7 GM/DL (32-36); Mean Corpuscular Volume 104.6 FL (87-102); Mean Platelet Volume 10.9 FL (9.6-12.0); Monocytes # 0.8 10*3/uL (0.11-0.8); Monocytes % 9.3 % (1.7-12.7); Neutrophils % 79.6 % (38.7-73.9); Platelet Count 120 T/CUMM (130-400); Red Blood Count 3.48 MC/CUMM (3.8-5.5); White Blood Count 8.4 T/CUMM (4-12)
[2022-08-22 03:37] LABS: Albumin 1.8 G/DL (3.4-5.0); Bilirubin,Total 1.7 MG/DL (0.20-1.00); Calcium 8.6 MG/DL (8.5-10.1); Potassium 4.2 MMOL/L (3.5-5.1); Total Protein 5.7 G/DL (6.4-8.2)
[2022-08-22] MEDS: INSULIN REGULAR 100 UNIT/ML SUBCUT SCH ×4 (08:41→20:51)
[2022-08-22] MEDS: FAMOTIDINE 20 MG/2 ML VIAL IV SCH (09:10)
[2022-08-22] MEDS: MULTIVITAMIN (CENTRUM) TABLET PO SCH (09:10)
[2022-08-22] MEDS: MIDODRINE 5 MG TABLET PO SCH ×3 (09:11→20:52)
[2022-08-22] MEDS: CARBIDOPA/LEVODOPA 25-100 MG TABLET PO SCH ×3 (09:12→16:31)
[2022-08-22] MEDS: MONTELUKAST 10 MG TABLET PO SCH (09:12)
[2022-08-22] MEDS: OMEGA 3 ACID ETHYL ESTERS 1 GM CAPSULE PO SCH ×2 (09:13→20:51)
[2022-08-22] MEDS: HEPARIN 5,000 UNIT/1 ML VIAL SUBCUT SCH ×2 (11:26→20:51)
[2022-08-22] MEDS: ASCORBIC ACID 500 MG TABLET PO SCH (11:26)
[2022-08-22] MEDS ORDERED: FUROSEMIDE 20 MG/2 ML VIAL IV ONE (12:48)
[2022-08-22] MEDS ORDERED: methylPREDNISolone SOD SUC 40 MG/1 ML VIAL IV SCH (13:00)
[2022-08-22] MEDS: DONEPEZIL 10 MG TABLET PO SCH (20:50)
[2022-08-22] MEDS: OXYBUTYNIN XL 5 MG TABLET PO SCH (20:50)
[2022-08-23 04:31] LABS: Basophils # 0.1 10*3/uL (0.0-0.2); Basophils % 0.7 % (0.0-0.8); Eosinophils # 0.1 10*3/uL (0.0-0.87); Eosinophils % 1.7 % (0.00-10.9); Hematocrit 34.2 VOL% (42.0-52.0); Hemoglobin 11.4 GM/DL (14.0-18.0); Immature Granulocytes % 0.6 %; Immature Granulocytes Absolute 0.05 #; Lymphocytes # 0.7 10*3/uL (1.4-4.0); Lymphocytes % 8.6 % (21.2-54.2); Mean Corpuscular HGB Conc 33.3 GM/DL (32-36); Mean Corpuscular Volume 105.6 FL (87-102); Mean Platelet Volume 10.9 FL (9.6-12.0); Monocytes # 0.8 10*3/uL (0.11-0.8); Monocytes % 9.9 % (1.7-12.7); Neutrophils % 78.5 % (38.7-73.9); Platelet Count 119 T/CUMM (130-400); Red Blood Count 3.24 MC/CUMM (3.8-5.5); Red Cell Distribution Width 17.3 % (9.3-17.3); White Blood Count 8.3 T/CUMM (4-12)
[2022-08-23 04:47] LABS: Albumin 1.7 G/DL (3.4-5.0); Bilirubin,Total 1.7 MG/DL (0.20-1.00); Osmolality,Calculated 283.4 MOS/KG (273-304); Potassium 4.4 MMOL/L (3.5-5.1); Total Protein 5.4 G/DL (6.4-8.2)
[2022-08-23 05:13] LABS: Platelet Estimate Decreased; Polychromasia Few; Target Cells Few
[2022-08-23] MEDS: INSULIN REGULAR 100 UNIT/ML SUBCUT SCH ×4 (08:40→21:20)
[2022-08-23] MEDS: METOPROLOL TARTRATE 25 MG TABLET PO SCH ×2 (08:41→21:01)
[2022-08-23] MEDS: MIDODRINE 5 MG TABLET PO SCH ×3 (08:43→21:01)
[2022-08-23] MEDS: OMEGA 3 ACID ETHYL ESTERS 1 GM CAPSULE PO SCH ×2 (08:43→21:00)
[2022-08-23] MEDS: CARBIDOPA/LEVODOPA 25-100 MG TABLET PO SCH ×3 (08:43→15:26)
[2022-08-23] MEDS: MULTIVITAMIN (CENTRUM) TABLET PO SCH (08:43)
[2022-08-23] MEDS: HEPARIN 5,000 UNIT/1 ML VIAL SUBCUT SCH ×2 (08:46→20:59)
[2022-08-23] MEDS: FAMOTIDINE 20 MG/2 ML VIAL IV SCH (08:55)
[2022-08-23] MEDS: ONDANSETRON 4 MG/2 ML VIAL IV PRN ×2 (09:17→15:48)
[2022-08-23] MEDS: MONTELUKAST 10 MG TABLET PO SCH (09:21)
[2022-08-23] MEDS: ASCORBIC ACID 500 MG TABLET PO SCH (11:36)
[2022-08-23] MEDS ORDERED: DOBUTamine 500 MG/250 ML PREMIX IV SCH (14:00)
[2022-08-23] MEDS: PHENYLEPHRINE INJ 160 MG in SODIUM CHLORIDE 0.9% 234 ML IV PRN (19:13)
[2022-08-23] MEDS: OXYBUTYNIN XL 5 MG TABLET PO SCH (21:01)
[2022-08-23] MEDS: DONEPEZIL 10 MG TABLET PO SCH (21:02)
[2022-08-24 07:03] LABS: Basophils % 0.3 % (0.0-0.8); Eosinophils % 0.2 % (0.00-10.9); Hematocrit 36.6 VOL% (42.0-52.0); Hemoglobin 11.9 GM/DL (14.0-18.0); Immature Granulocytes % 0.4 %; Immature Granulocytes Absolute 0.05 #; Lymphocytes # 0.5 10*3/uL (1.4-4.0); Lymphocytes % 4.1 % (21.2-54.2); Mean Corpuscular HGB Conc 32.5 GM/DL (32-36); Mean Corpuscular Volume 105.8 FL (87-102); Mean Platelet Volume 11.3 FL (9.6-12.0); Monocytes # 0.8 10*3/uL (0.11-0.8); Monocytes % 7.2 % (1.7-12.7); Neutrophils % 87.8 % (38.7-73.9); Red Blood Count 3.46 MC/CUMM (3.8-5.5); Red Cell Distribution Width 18.2 % (9.3-17.3); White Blood Count 11.7 T/CUMM (4-12)
[2022-08-24 07:07] LABS: Platelet Count 123 T/CUMM (130-400)
[2022-08-24 07:19] LABS: Albumin 1.9 G/DL (3.4-5.0); Bilirubin,Total 2.1 MG/DL (0.20-1.00); Calcium 8.6 MG/DL (8.5-10.1); Osmolality,Calculated 284.1 MOS/KG (273-304); Potassium 4.5 MMOL/L (3.5-5.1); Total Protein 5.8 G/DL (6.4-8.2)
[2022-08-24 07:22] LABS: Lymphocytes 2 % (20-55); Platelet Estimate Normal; Total Cells Counted 100
[2022-08-24] MEDS: MONTELUKAST 10 MG TABLET PO SCH (08:44)
[2022-08-24] MEDS: OMEGA 3 ACID ETHYL ESTERS 1 GM CAPSULE PO SCH ×2 (08:46→22:57)
[2022-08-24] MEDS: MIDODRINE 5 MG TABLET PO SCH ×3 (08:46→22:50)
[2022-08-24] MEDS: FAMOTIDINE 20 MG/2 ML VIAL IV SCH (08:46)
[2022-08-24] MEDS: CARBIDOPA/LEVODOPA 25-100 MG TABLET PO SCH ×3 (08:46→15:47)
[2022-08-24] MEDS: MULTIVITAMIN (CENTRUM) TABLET PO SCH (08:46)
[2022-08-24] MEDS: ONDANSETRON 4 MG/2 ML VIAL IV PRN ×3 (08:48→22:57)
[2022-08-24] MEDS: HEPARIN 5,000 UNIT/1 ML VIAL SUBCUT SCH ×2 (08:48→22:50)
[2022-08-24] MEDS: INSULIN REGULAR 100 UNIT/ML SUBCUT SCH ×4 (08:48→22:50)
[2022-08-24] MEDS: METOPROLOL TARTRATE 25 MG TABLET PO SCH (09:50)
[2022-08-24] MEDS ORDERED: HYDROCORTISONE 100 MG VIAL IV ONE (10:07)
[2022-08-24] MEDS ORDERED: chlorproMAZINE 25 MG TABLET PO PRN (10:33)
[2022-08-24] MEDS: ASCORBIC ACID 500 MG TABLET PO SCH (12:04)
[2022-08-24] MEDS: DONEPEZIL 10 MG TABLET PO SCH (22:50)
[2022-08-24] MEDS: OXYBUTYNIN XL 5 MG TABLET PO SCH (22:50)
[2022-08-25] MEDS: MORPHINE 2 MG/1 ML SYRINGE IV PRN (01:10)
[2022-08-25] MEDS ORDERED: PROMETHAZINE 25 MG/1 ML VIAL IM ONE (02:00)
[2022-08-25 04:39] LABS: Basophils % 0.1 % (0.0-0.8); Hematocrit 32.2 VOL% (42.0-52.0); Hemoglobin 10.6 GM/DL (14.0-18.0); Immature Granulocytes % 0.6 %; Immature Granulocytes Absolute 0.05 #; Lymphocytes # 0.5 10*3/uL (1.4-4.0); Lymphocytes % 6.2 % (21.2-54.2); Mean Corpuscular HGB Conc 32.9 GM/DL (32-36); Mean Corpuscular Volume 105.9 FL (87-102); Mean Platelet Volume 11.5 FL (9.6-12.0); Monocytes # 0.7 10*3/uL (0.11-0.8); Neutrophils % 85.1 % (38.7-73.9); Platelet Count 105 T/CUMM (130-400); Red Blood Count 3.04 MC/CUMM (3.8-5.5); White Blood Count 8.2 T/CUMM (4-12)
[2022-08-25 05:05] LABS: Albumin 1.7 G/DL (3.4-5.0); Bilirubin,Total 1.6 MG/DL (0.20-1.00); Calcium 9.1 MG/DL (8.5-10.1); Osmolality,Calculated 281.7 MOS/KG (273-304); Potassium 4.9 MMOL/L (3.5-5.1); Total Protein 5.4 G/DL (6.4-8.2)
[2022-08-25] MEDS: INSULIN REGULAR 100 UNIT/ML SUBCUT SCH ×4 (07:48→21:35)
[2022-08-25] MEDS: MONTELUKAST 10 MG TABLET PO SCH (08:19)
[2022-08-25] MEDS: OMEGA 3 ACID ETHYL ESTERS 1 GM CAPSULE PO SCH ×2 (08:19→21:34)
[2022-08-25] MEDS: MIDODRINE 5 MG TABLET PO SCH ×3 (08:19→21:34)
[2022-08-25] MEDS: MULTIVITAMIN (CENTRUM) TABLET PO SCH (08:19)
[2022-08-25] MEDS: CARBIDOPA/LEVODOPA 25-100 MG TABLET PO SCH ×3 (08:19→15:31)
[2022-08-25] MEDS: FAMOTIDINE 20 MG/2 ML VIAL IV SCH (08:34)
[2022-08-25] MEDS: HEPARIN 5,000 UNIT/1 ML VIAL SUBCUT SCH (09:00)
[2022-08-25 09:53] LABS: ABG Base Excess -0.2 MMOL/L (-2.5-2.5); ABG HCO3 24.2 MMOL/L (20-26); ABG Oxygen Saturation 96.7 % (95-100); ABG PH 7.436 (7.35-7.45); ABG PO2 82.2 MM HG (80-95)
[2022-08-25] MEDS: ONDANSETRON 4 MG/2 ML VIAL IV PRN ×3 (10:20→17:20)
[2022-08-25] MEDS: ASCORBIC ACID 500 MG TABLET PO SCH (12:15)
[2022-08-25] MEDS: OXYBUTYNIN XL 5 MG TABLET PO SCH (21:35)
[2022-08-25] MEDS: APIXABAN 2.5 MG TABLET PO SCH (21:35)
[2022-08-25] MEDS: DONEPEZIL 10 MG TABLET PO SCH (21:35)
[2022-08-26 03:24] LABS: Arterial Base Excess iSTAT 0 MMOL/L (-2.5-2.5); Arterial Bicarbonate iSTAT 24.3 MMOL/L (20-26); Arterial O2 Saturation iSTAT 93 % (95-100); Arterial PCO2 iSTAT 38 MM HG (35-48); Arterial PO2 iSTAT 65 MM HG (80-95); Arterial Total CO2 iSTAT 25 MMO/L (23-27); Arterial pH iSTAT 7.421 (7.35-7.45)
[2022-08-26 05:11] LABS: Basophils % 0.4 % (0.0-0.8); Eosinophils # 0.1 10*3/uL (0.0-0.87); Eosinophils % 1.7 % (0.00-10.9); Hematocrit 33.2 VOL% (42.0-52.0); Hemoglobin 10.8 GM/DL (14.0-18.0); Immature Granulocytes % 0.3 %; Immature Granulocytes Absolute 0.02 #; Lymphocytes # 0.6 10*3/uL (1.4-4.0); Lymphocytes % 8.4 % (21.2-54.2); Mean Corpuscular HGB Conc 32.5 GM/DL (32-36); Mean Corpuscular Volume 106.4 FL (87-102); Mean Platelet Volume 11.5 FL (9.6-12.0); Monocytes # 0.6 10*3/uL (0.11-0.8); Monocytes % 8.7 % (1.7-12.7); Neutrophils % 80.5 % (38.7-73.9); Platelet Count 98 T/CUMM (130-400); Red Blood Count 3.12 MC/CUMM (3.8-5.5); Red Cell Distribution Width 17.9 % (9.3-17.3); White Blood Count 7.1 T/CUMM (4-12)
[2022-08-26 05:24] LABS: Albumin 1.6 G/DL (3.4-5.0); Bilirubin,Total 1.7 MG/DL (0.20-1.00); Calcium 8.9 MG/DL (8.5-10.1); Osmolality,Calculated 290.2 MOS/KG (273-304); Phosphorous 4.3 MG/DL (2.5-4.9); Total Protein 5.1 G/DL (6.4-8.2)
[2022-08-26 05:29] LABS: Calcium 8.7 MG/DL (8.5-10.1); Osmolality,Calculated 290.2 MOS/KG (273-304); Platelet Estimate Decreased; Potassium 4.9 MMOL/L (3.5-5.1)
[2022-08-26] MEDS: INSULIN REGULAR 100 UNIT/ML SUBCUT SCH ×4 (07:54→21:21)
[2022-08-26] MEDS: CARBIDOPA/LEVODOPA 25-100 MG TABLET PO SCH ×3 (08:43→16:50)
[2022-08-26] MEDS: MONTELUKAST 10 MG TABLET PO SCH (08:43)
[2022-08-26] MEDS: APIXABAN 2.5 MG TABLET PO SCH ×2 (08:43→21:21)
[2022-08-26] MEDS: MULTIVITAMIN (CENTRUM) TABLET PO SCH (08:43)
[2022-08-26] MEDS: MIDODRINE 5 MG TABLET PO SCH ×3 (08:43→16:49)
[2022-08-26] MEDS: OMEGA 3 ACID ETHYL ESTERS 1 GM CAPSULE PO SCH ×2 (08:43→21:21)
[2022-08-26] MEDS: ERGOCALCIFEROL 50,000 UNIT CAPSULE PO SCH (08:43)
[2022-08-26] MEDS: PHENOL 1.4% THROAT SPRAY 177 ML BOTTLE PO PRN (08:45)
[2022-08-26] MEDS: ASCORBIC ACID 500 MG TABLET PO SCH (11:20)
[2022-08-26] MEDS: DONEPEZIL 10 MG TABLET PO SCH (21:20)
[2022-08-26] MEDS: OXYBUTYNIN XL 5 MG TABLET PO SCH (21:20)
[2022-08-27] MEDS: MORPHINE 2 MG/1 ML SYRINGE IV PRN (01:49)
[2022-08-27] MEDS: ONDANSETRON 4 MG/2 ML VIAL IV PRN ×2 (01:50→13:10)
[2022-08-27] MEDS: INSULIN REGULAR 100 UNIT/ML SUBCUT SCH ×4 (07:56→21:07)
[2022-08-27] MEDS: CARBIDOPA/LEVODOPA 25-100 MG TABLET PO SCH ×3 (09:33→16:51)
[2022-08-27] MEDS: APIXABAN 2.5 MG TABLET PO SCH ×2 (09:33→21:07)
[2022-08-27] MEDS: MONTELUKAST 10 MG TABLET PO SCH (09:33)
[2022-08-27] MEDS: MIDODRINE 5 MG TABLET PO SCH ×3 (09:33→16:51)
[2022-08-27] MEDS: MULTIVITAMIN (CENTRUM) TABLET PO SCH (09:34)
[2022-08-27] MEDS: OMEGA 3 ACID ETHYL ESTERS 1 GM CAPSULE PO SCH ×2 (09:34→21:07)
[2022-08-27] MEDS: ASCORBIC ACID 500 MG TABLET PO SCH (13:10)
[2022-08-27] MEDS: DONEPEZIL 10 MG TABLET PO SCH (21:07)
[2022-08-27] MEDS: OXYBUTYNIN XL 5 MG TABLET PO SCH (21:07)
[2022-08-28 03:41] LABS: Basophils % 0.2 % (0.0-0.8); Eosinophils % 0.1 % (0.00-10.9); Hemoglobin 11.4 GM/DL (14.0-18.0); Immature Granulocytes % 0.5 %; Immature Granulocytes Absolute 0.05 #; Lymphocytes # 0.5 10*3/uL (1.4-4.0); Lymphocytes % 4.9 % (21.2-54.2); Mean Corpuscular HGB Conc 32.6 GM/DL (32-36); Mean Corpuscular Volume 104.8 FL (87-102); Mean Platelet Volume 11.5 FL (9.6-12.0); Monocytes # 0.8 10*3/uL (0.11-0.8); Monocytes % 8.8 % (1.7-12.7); Neutrophils % 85.5 % (38.7-73.9); Platelet Count 133 T/CUMM (130-400); Red Blood Count 3.34 MC/CUMM (3.8-5.5); Red Cell Distribution Width 17.3 % (9.3-17.3); White Blood Count 9.1 T/CUMM (4-12)
[2022-08-28 03:58] LABS: Band Neutrophils 1 % (0-10); Lymphocytes 7 % (20-55); Total Cells Counted 100
[2022-08-28 04:01] LABS: Albumin 1.5 G/DL (3.4-5.0); Bilirubin,Total 1.6 MG/DL (0.20-1.00); Osmolality,Calculated 295.2 MOS/KG (273-304); Potassium 5.1 MMOL/L (3.5-5.1); Total Protein 5.5 G/DL (6.4-8.2)
[2022-08-28] MEDS: CARBIDOPA/LEVODOPA 25-100 MG TABLET PO SCH ×3 (07:59→17:08)
[2022-08-28] MEDS: INSULIN REGULAR 100 UNIT/ML SUBCUT SCH ×4 (07:59→20:07)
[2022-08-28] MEDS: MULTIVITAMIN (CENTRUM) TABLET PO SCH (07:59)
[2022-08-28] MEDS: OMEGA 3 ACID ETHYL ESTERS 1 GM CAPSULE PO SCH ×2 (07:59→20:07)
[2022-08-28] MEDS: MIDODRINE 5 MG TABLET PO SCH ×3 (07:59→17:08)
[2022-08-28] MEDS: MONTELUKAST 10 MG TABLET PO SCH (07:59)
[2022-08-28] MEDS: APIXABAN 2.5 MG TABLET PO SCH (07:59)
[2022-08-28] MEDS ORDERED: LACTULOSE 20 GM/30 ML UDCUP PO ONE (08:34)
[2022-08-28] MEDS: ASCORBIC ACID 500 MG TABLET PO SCH (11:59)
[2022-08-28] MEDS: traMADol 50 MG TABLET PO PRN ×2 (11:59→20:07)
[2022-08-28] MEDS: ONDANSETRON 4 MG/2 ML VIAL IV PRN ×2 (13:01→20:08)
[2022-08-28] MEDS: DONEPEZIL 10 MG TABLET PO SCH (20:07)
[2022-08-28] MEDS: OXYBUTYNIN XL 5 MG TABLET PO SCH (20:07)
[2022-08-28] MEDS: PHENOL 1.4% THROAT SPRAY 177 ML BOTTLE PO PRN (23:01)
[2022-08-29] MEDS: ONDANSETRON 4 MG/2 ML VIAL IV PRN ×3 (03:49→17:50)
[2022-08-29 03:50] LABS: Basophils % 0.1 % (0.0-0.8); Hematocrit 36.8 VOL% (42.0-52.0); Immature Granulocytes % 0.5 %; Immature Granulocytes Absolute 0.06 #; Lymphocytes # 0.4 10*3/uL (1.4-4.0); Lymphocytes % 3.4 % (21.2-54.2); Mean Corpuscular HGB Conc 32.6 GM/DL (32-36); Mean Corpuscular Volume 104.2 FL (87-102); Mean Platelet Volume 11.3 FL (9.6-12.0); Monocytes # 0.9 10*3/uL (0.11-0.8); Monocytes % 7.5 % (1.7-12.7); Neutrophils % 88.5 % (38.7-73.9); Platelet Count 157 T/CUMM (130-400); Red Blood Count 3.53 MC/CUMM (3.8-5.5); Red Cell Distribution Width 17.3 % (9.3-17.3); White Blood Count 11.9 T/CUMM (4-12)
[2022-08-29 04:10] LABS: Albumin 1.5 G/DL (3.4-5.0); Bilirubin,Direct 1.99 MG/DL (0.0-0.20); Bilirubin,Indirect 0.5 MG/DL (0.0-1.0); Bilirubin,Total 2.5 MG/DL (0.20-1.00); Calcium 9.2 MG/DL (8.5-10.1); Osmolality,Calculated 289.2 MOS/KG (273-304); Potassium 4.9 MMOL/L (3.5-5.1); Total Protein 5.8 G/DL (6.4-8.2)
[2022-08-29 04:20] LABS: Band Neutrophils 1 % (0-10); Lymphocytes 1 % (20-55); Platelet Estimate Adequate; Total Cells Counted 100
[2022-08-29] MEDS: PHENOL 1.4% THROAT SPRAY 177 ML BOTTLE PO PRN ×2 (06:00→14:10)
[2022-08-29] MEDS: INSULIN REGULAR 100 UNIT/ML SUBCUT SCH ×4 (07:50→20:12)
[2022-08-29] MEDS: traMADol 50 MG TABLET PO PRN (08:45)
[2022-08-29] MEDS: MULTIVITAMIN (CENTRUM) TABLET PO SCH (08:45)
[2022-08-29] MEDS: MIDODRINE 5 MG TABLET PO SCH ×3 (08:48→16:14)
[2022-08-29] MEDS: CARBIDOPA/LEVODOPA 25-100 MG TABLET PO SCH ×3 (08:48→16:14)
[2022-08-29] MEDS: MONTELUKAST 10 MG TABLET PO SCH (08:48)
[2022-08-29] MEDS: OMEGA 3 ACID ETHYL ESTERS 1 GM CAPSULE PO SCH ×2 (08:50→21:09)
[2022-08-29] MEDS: ASCORBIC ACID 500 MG TABLET PO SCH (10:44)
[2022-08-29] MEDS: ENOXAPARIN 100 MG/ML SYRINGE SUBCUT SCH (16:14)
[2022-08-29] MEDS ORDERED: DOPamine 800 MG/250 ML PREMIX IV PRN (16:18)
[2022-08-29] MEDS: DOBUTamine 500 MG/250 ML PREMIX IV SCH (16:44)
[2022-08-29] MEDS: DOPamine 800 MG/250 ML PREMIX IV SCH (17:31)
[2022-08-29] MEDS: DONEPEZIL 10 MG TABLET PO SCH (21:09)
[2022-08-29] MEDS: OXYBUTYNIN XL 5 MG TABLET PO SCH (21:09)
[2022-08-30 04:02] LABS: Basophils % 0.2 % (0.0-0.8); Hematocrit 35.5 VOL% (42.0-52.0); Hemoglobin 11.7 GM/DL (14.0-18.0); Immature Granulocytes % 0.7 %; Immature Granulocytes Absolute 0.09 #; Lymphocytes # 0.4 10*3/uL (1.4-4.0); Lymphocytes % 3.6 % (21.2-54.2); Mean Corpuscular Volume 104.1 FL (87-102); Mean Platelet Volume 11.5 FL (9.6-12.0); Monocytes % 7.8 % (1.7-12.7); Neutrophils % 87.7 % (38.7-73.9); Platelet Count 162 T/CUMM (130-400); Red Blood Count 3.41 MC/CUMM (3.8-5.5); Red Cell Distribution Width 17.2 % (9.3-17.3); White Blood Count 12.2 T/CUMM (4-12)
[2022-08-30 04:24] LABS: Albumin 1.4 G/DL (3.4-5.0); Bilirubin,Total 2.5 MG/DL (0.20-1.00); Calcium 9.5 MG/DL (8.5-10.1); Osmolality,Calculated 299.1 MOS/KG (273-304); Potassium 5.4 MMOL/L (3.5-5.1); Total Protein 5.7 G/DL (6.4-8.2)
[2022-08-30 04:34] LABS: Lymphocytes 4 % (20-55); Platelet Estimate Adequate; Total Cells Counted 100
[2022-08-30] MEDS: PHENOL 1.4% THROAT SPRAY 177 ML BOTTLE PO PRN (06:23)
[2022-08-30] MEDS: INSULIN REGULAR 100 UNIT/ML SUBCUT SCH ×4 (07:53→20:07)
[2022-08-30] MEDS: MONTELUKAST 10 MG TABLET PO SCH (08:45)
[2022-08-30] MEDS: OMEGA 3 ACID ETHYL ESTERS 1 GM CAPSULE PO SCH ×2 (08:45→20:07)
[2022-08-30] MEDS: MULTIVITAMIN (CENTRUM) TABLET PO SCH (08:45)
[2022-08-30] MEDS: CARBIDOPA/LEVODOPA 25-100 MG TABLET PO SCH ×3 (08:45→16:24)
[2022-08-30] MEDS: DOPamine 800 MG/250 ML PREMIX IV SCH ×3 (10:45→20:39)
[2022-08-30] MEDS: ASCORBIC ACID 500 MG TABLET PO SCH (12:20)
[2022-08-30] MEDS: traMADol 50 MG TABLET PO PRN (16:24)
[2022-08-30] MEDS: ENOXAPARIN 100 MG/ML SYRINGE SUBCUT SCH (16:25)
[2022-08-30] MEDS: ONDANSETRON 4 MG/2 ML VIAL IV PRN (16:25)
[2022-08-30] MEDS: DOBUTamine 500 MG/250 ML PREMIX IV SCH (17:31)
[2022-08-30] MEDS: PROMETHAZINE 25 MG/1 ML VIAL IM PRN (17:53)
[2022-08-30] MEDS: OXYBUTYNIN XL 5 MG TABLET PO SCH (20:06)
[2022-08-30] MEDS: DONEPEZIL 10 MG TABLET PO SCH (20:06)
[2022-08-31 04:59] LABS: Basophils % 0.3 % (0.0-0.8); Hematocrit 35.1 VOL% (42.0-52.0); Hemoglobin 11.4 GM/DL (14.0-18.0); Immature Granulocytes % 0.7 %; Immature Granulocytes Absolute 0.07 #; Lymphocytes # 0.5 10*3/uL (1.4-4.0); Lymphocytes % 4.5 % (21.2-54.2); Mean Corpuscular HGB Conc 32.5 GM/DL (32-36); Mean Corpuscular Volume 103.2 FL (87-102); Mean Platelet Volume 11.8 FL (9.6-12.0); Monocytes # 0.4 10*3/uL (0.11-0.8); Monocytes % 4.1 % (1.7-12.7); Neutrophils % 90.4 % (38.7-73.9); Platelet Count 177 T/CUMM (130-400); Red Cell Distribution Width 17.2 % (9.3-17.3); White Blood Count 10.6 T/CUMM (4-12)
[2022-08-31 05:18] LABS: Albumin 1.3 G/DL (3.4-5.0); Bilirubin,Total 2.3 MG/DL (0.20-1.00); Calcium 9.7 MG/DL (8.5-10.1); Osmolality,Calculated 284.8 MOS/KG (273-304); Potassium 4.8 MMOL/L (3.5-5.1); Total Protein 5.7 G/DL (6.4-8.2)
[2022-08-31 06:41] LABS: Band Neutrophils 2 % (0-10); Lymphocytes 2 % (20-55); Platelet Estimate Adequate; Total Cells Counted 100
[2022-08-31] MEDS: INSULIN REGULAR 100 UNIT/ML SUBCUT SCH ×2 (08:00→11:27)
[2022-08-31] MEDS: PHENOL 1.4% THROAT SPRAY 177 ML BOTTLE PO PRN (08:00)
[2022-08-31] MEDS: OMEGA 3 ACID ETHYL ESTERS 1 GM CAPSULE PO SCH (08:21)
[2022-08-31] MEDS: CARBIDOPA/LEVODOPA 25-100 MG TABLET PO SCH ×3 (08:21→16:04)
[2022-08-31] MEDS: MONTELUKAST 10 MG TABLET PO SCH (08:21)
[2022-08-31] MEDS: MULTIVITAMIN (CENTRUM) TABLET PO SCH (08:21)
[2022-08-31] MEDS: PROMETHAZINE 25 MG/1 ML VIAL IM PRN ×2 (08:26→14:16)
[2022-08-31] MEDS: traMADol 50 MG TABLET PO PRN (08:26)
[2022-08-31] MEDS: DOPamine 800 MG/250 ML PREMIX IV SCH (09:12)
[2022-08-31] MEDS: ASCORBIC ACID 500 MG TABLET PO SCH (11:32)
[2022-08-31] MEDS: MORPHINE 2 MG/1 ML SYRINGE IV PRN ×3 (16:15→23:37)
[2022-08-31] MEDS: DOBUTamine 500 MG/250 ML PREMIX IV SCH (16:57)
[2022-08-31] MEDS: PROMETHAZINE 25 MG/1 ML VIAL IV PRN ×2 (20:45→23:37)
[2022-08-31] MEDS: LORazepam 2 MG/1 ML VIAL IV PRN (23:36)
[2022-09-01] MEDS: MORPHINE 2 MG/1 ML SYRINGE IV PRN ×4 (04:29→18:40)
[2022-09-01] MEDS: LORazepam 2 MG/1 ML VIAL IV PRN ×2 (04:29→18:40)
[2022-09-01] MEDS: PROMETHAZINE 25 MG/1 ML VIAL IV PRN (04:30)
[2022-09-01] MEDS: CARBIDOPA/LEVODOPA 25-100 MG TABLET PO SCH ×3 (08:40→16:33)
[2022-09-01 09:55] VITALS: BP 66/39
== END 2022-09-02 00:08 | disposition expired | DRG 291 ==
LOC: N.ED 01:37 → SUATTDRO 04:28 → N.EDINP 04:28 → N.CC 04:51 → N.TELEN 09-01 05:01
PROVIDERS: ADMIT Internal Medicine; ATTEND Family Medicine